=== PATIENT | male | born 1975 | race Caucasian/White ===

== ENCOUNTER 2018-07-09 21:07 | Emergency (ER) | payer OTHER, SELFPAY ==
[2018-07-09 21:17] VITALS: BP 119/72; PULSE 68; RESP 15; TEMP 36.6; O2SAT 99
--- NOTE | 2018-07-09 21:23 | DI.RAD.S_ITS ---
PROCEDURE: XR CHEST 1V INDICATIONS: back/arm pain TECHNIQUE: One view of the chest was acquired. COMPARISON: [facility], , CHEST 2 VIEW, 01/03/2017, 16:04. FINDINGS: Surgical changes and devices: None. Lungs and pleura: No pleural effusions or pneumothorax. Lungs are clear. Mediastinum: Mediastinal contours appear normal. Heart size is normal. Bones and chest wall: No suspicious bony lesions. Overlying soft tissues appear unremarkable. IMPRESSION: No acute pulmonary process. Dictated by: Steph Wyatt M.D. on 07/09/2018 at 21:52 Approved by: Steph Wyatt M.D. on 07/09/2018 at 21:52
[2018-07-09 21:30] LABS: Add Manual Diff / Slide Review NO; Basophils Percent Auto 0.7 % (0-2); Eosinophils Percent Auto 4.2 % (2-4); Hematocrit 41.5 % (41-53); Hemoglobin 14.1 g/dL (13.5-17.5); Lymphocytes Percent Auto 26.9 % (25-40); Mean Corpuscular Hemoglobin 29.3 PG (26-34); Mean Corpuscular Volume 86.1 fL (80-100); Monocytes Percent Auto 6.7 % (3-14); Neutrophils Absolute Auto 7100 /uL (3000-5900); Neutrophils Percent Auto 61.5 % (50-75); Platelet Count 232 X10^3/uL (150-400); Red Blood Cell Count 4.82 X10^6/uL (4.5-5.9); Red Cell Distribution Width 13.2 % (11.6-14.8); White Blood Cell Count 11.6 X10^3/uL (4.5-11.0)
[2018-07-09 21:39] LABS: Alanine Aminotransferase 52 IU/L (21-72); Albumin 4.4 g/dL (3.5-5.0); Albumin Globulin Ratio 1.5 (1.0-2.8); Alkaline Phosphatase 71 U/L (38-126); Aspartate Aminotransferase 39 IU/L (17-59); BUN Creatinine Ratio 15.6 (6-22); Bilirubin Total 0.7 mg/dL (0.2-1.3); Blood Urea Nitrogen 14 mg/dL (9-20); Calcium 9.1 mg/dL (8.4-10.2); Carbon Dioxide 31 mmol/L (22-32); Chloride 104 mmol/L (98-107); Creatine Kinase 103 U/L (55-170); Estimated Glomerular Filt Rate > 60.0 mL/min (>60); Glucose 65 mg/dL (70-100); HEMOLYSIS < 15 (0-50); Lipase 97 U/L (23-300); Potassium 3.7 mmol/L (3.4-5.1); Sodium 145 mmol/L (137-145); Total Protein 7.4 g/dL (6.3-8.2)
--- NOTE | 2018-07-09 21:48 | ED.CHESTPAIN ---
HPI - Chest Pain General Chief Complaint: Chest Pain Stated Complaint: PAIN UPPER BACK AND ARM ADN TOWRDS CHEST Time Seen by Provider: 07/09/18 21:25 Source: patient and family ( ) Mode of arrival: ambulatory Limitations: no limitations History of Present Illness HPI narrative: this is a 43-year-old male who comes to the emergency department with complaint of back pain that radiates to the anterior chest. Patient states that also makes his chronic right arm pain worse. Patient states it started a couple days ago. 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 It has not improved. Movement seems to make it worse. His tried massaging the area which did not really seem to improve it. He has tried Tylenol which has not been helpful for pain. Patient states that he does not feel short of breath. Symptoms are not worse with deep inspiration. He has not had any fevers. No cold cough or congestion. No nausea, no vomiting no GI or urinary issues otherwise. He has not had any swelling in his extremities. He chronically has pain in his right arm but states that it is worsened when this pain is worsened. Does have a history of asthma. States that he cannot take ibuprofen or NSAIDs secondary to reaction to them. He does smoke about 1 pack per week tobacco and vapes a lot per patient. Related Data Previous Rx's Medication Instructions Recorded naproxen [Naprosyn] 500 mg PO BIDCC #30 tab 07/17/17 albuterol sulfate [Ventolin HFA] 1 puff INH Q4HP PRN #1 ea 07/24/17 tramadol 50 mg PO Q6H PRN #10 tab 07/09/18 Allergies Allergy/AdvReac Type Severity Reaction Status Date / Time latex Allergy Mild RASH Unverified 12/30/17 12:15 Review of Systems Review of Systems All systems reviewed & are unremarkable except as noted in HPI and below Constitutional Denies fever(s) Cardiovascular Reports chest pain, Denies diaphoresis, Denies syncope, Denies rapid heart rate, Denies edema, Reports radiating jaw, neck or arm pain, Denies dyspnea and Denies dyspnea on exertion Respiratory Denies chest congestion, Denies cough, Denies hemoptysis, Denies pain on inspiration, Denies dyspnea, Denies dyspnea on exertion and Denies wheezing Gastrointestinal Gastrointestinal: Denies abdominal pain, Denies change in bowel habits, Denies diarrhea, Denies nausea and Denies vomiting Genitourinary Denies difficulty urinating Musculoskeletal Denies muscle cramps, Denies numbness, Reports radiating pain into limb (right arm, chronic) and Denies tingling Integumentary/Breasts Denies rash Neurologic Denies syncope, Denies numbness and Denies tingling Allergic/Immunologic Denies wheezing PFSH Medical History Asthma (Acute) Surgical History History of hand surgery (Acute) Family History Grandmother Age: 94 Cerebrovascular accident (CVA), unspecified mechanism Social History Smoking Status: Current every day smoker Exam Narrative Exam Narrative: GENERAL: Alert and oriented x three, Well-nourished, well-appearing Male in mild distress. HEENT: Head normocephalic, atraumatic, EOMI, pupils reactive, face symmetric, moist mucous membranes NECK: Supple, full range of motion CARDIOVASCULAR: Regular rate and rhythm without murmurs, rubs or gallops. RESPIRATORY: Breath sounds equal bilaterally, no wheezes rales or rhonchi. ABDOMEN: Soft, nontender. Normoactive bowel sounds all 4 quadrants. No guarding or rebound, rigidity, no mass : No CVA tenderness BACK: No cervical, thoracic or lumbar vertebral point tenderness. Patient has normal range of motion. Muscle strength is 5/5 in upper extremities, 2+ radial pulses bilaterally. Patient does have tenderness over the right upper thoracic region just medial to the scapula. I am unable to palpate muscular not but he is also point tender in that area. EXTREMITIES: Normal range of motion, no clubbing or edema. Neurovascularly intact NEUROLOGICAL: Cranial nerves II through XII grossly intact. Moving all extremities SKIN: Warm, dry, no petechiae, no rashes or lesions. Initial Vital Signs Initial Vital Signs: Vital Signs Temperature 97.8 F 07/09/18 21:17 Pulse Rate 68 07/09/18 21:17 Respiratory Rate 15 07/09/18 21:17 Blood Pressure 119/72 07/09/18 21:17 Pulse Oximetry 99 07/09/18 21:17 Scores PERC Score Age greater than or equal to 50 years: No Heart rate greater than or equal to 100 bpm: No Room Air O2 Sat less than 95%: No Unilateral leg swelling: No Recent trauma or surgery: No Hemoptysis: No Prior PE or DVT: No Hormone Use: No Total PERC Score: 0 Course Orders Ordered: ED Orders 07/09/18 21:20 Complete Blood Count AUTO DIFF Stat Comprehensive Metabolic Panel Stat Lipase Stat Troponin & CK Cardiac Panel Stat 07/09/18 21:23 XR chest 1V Stat EKG-12 Lead Stat Discontinued Medications Aspirin (Aspirin Chew) 324 mg PO NOW ONE Stop: 07/09/18 21:24 Last Admin: 07/09/18 21:56 Dose: 324 mg Sodium Chloride (Normal Saline 0.9%) 1,000 mls @ 150 mls/hr IV CONT JAIME Last Infusion: 07/09/18 23:15 Dose: 0 mls/hr Admin: 07/09/18 21:56 Dose: 150 mls/hr Tramadol HCl (Ultram 50mg Prepack) 1 bottle MISC SEEINSTR ONE Stop: 07/09/18 22:54 Last Admin: 07/09/18 23:09 Dose: 1 bottle Vital Signs - 8 hr 07/09/18 21:17 07/09/18 23:15 Temperature 97.8 F 98.1 F Pulse Rate 68 67 Respiratory Rate 15 15 Blood Pressure 119/72 103/68 Pulse Oximetry 99 98 MDM - Chest Pain Lab Data Attestation: I reviewed the patient's lab results. Result diagrams: 07/09/18 21:20 07/09/18 21:20 Lab Results 07/09/18 07/09/18 Range/Units 21:20 21:20 WBC 11.6 H (4.5-11.0) X10^3/uL RBC 4.82 (4.5-5.9) X10^6/uL Hgb 14.1 (13.5-17.5) g/dL Hct 41.5 (41-53) % MCV 86.1 (80-100) fL MCH 29.3 (26-34) PG MCHC 34.0 (30-36) % RDW 13.2 (11.6-14.8) % Plt Count 232 (150-400) X10^3/uL Neut % (Auto) 61.5 (50-75) % Lymph % (Auto) 26.9 (25-40) % [place] % (Auto) 6.7 (3-14) % Eos % (Auto) 4.2 H (2-4) % Baso % (Auto) 0.7 (0-2) % Neut # (Auto) 7100 H (9985-9789) /uL Sodium 145 (137-145) mmol/L Potassium 3.7 (3.4-5.1) mmol/L Chloride 104 (98-107) mmol/L Carbon Dioxide 31 (22-32) mmol/L BUN 14 (9-20) mg/dL Creatinine 0.90 (0.66-1.25) mg/dL Estimated GFR > 60.0 (>60) mL/min BUN/Creatinine Ratio 15.6 (6-22) Glucose 65 L (70-100) mg/dL Calcium 9.1 (8.4-10.2) mg/dL Total Bilirubin 0.7 (0.2-1.3) mg/dL AST 39 (17-59) IU/L ALT 52 (21-72) IU/L Alkaline Phosphatase 71 (38-126) U/L Total Creatine Kinase 103 (55-170) U/L CK-MB (CK-2) 1.00 (<2.37) ng/mL CK-MB (CK-2) Rel Index 1.0 L (1.5-5.0) % Troponin I < 0.012 (0.01-0.034) ng/mL Total Protein 7.4 (6.3-8.2) g/dL Albumin 4.4 (3.5-5.0) g/dL Globulin 3.0 (1.7-4.1) g/dL Albumin/Globulin Ratio 1.5 (1.0-2.8) Lipase 97 (23-300) U/L Imaging Data Chest x-ray: Attestation: I personally reviewed and interpreted this imaging study as follows: Radiologist's impression: [address] [address] XRay Report Signed Patient: Dwayne Chambers WMR#: [id number] : 1975Acct:[id number] Age/Sex: 43 / MDate of Service: 07/09/18 Loc: ED Accession Number: [id number] Procedure: XR chest 1V Ordering Provider: Ami Alvarez D.O. PROCEDURE: XR CHEST 1V INDICATIONS: back/arm pain TECHNIQUE: One view of the chest was acquired. COMPARISON: [facility], , CHEST 2 VIEW, 01/03/2017, 16:04. FINDINGS: Surgical changes and devices: None. Lungs and pleura: No pleural effusions or pneumothorax. Lungs are clear. Mediastinum: Mediastinal contours appear normal. Heart size is normal. Bones and chest wall: No suspicious bony lesions. Overlying soft tissues appear unremarkable. IMPRESSION: No acute pulmonary process. Dictated by: Steph Wyatt M.D. on 07/09/2018 at 21:52 Approved by: Steph Wytat M.D. on 07/09/2018 at 21:52 ECG Data Attestation: I personally reviewed and interpreted this ECG as follows: Interpretation: Sinus arrhythmia, rate is 62 in, P are 1 EA history currently QRS is 94 and QTC of 412. No ST elevation or depression. MDM Narrative Medical decision making narrative: Patient has had several days of constant back pain radiating to his anterior chest. EKG and troponin are negative. Patient's pain as well as actual physical tenderness is just medial to the right scapula which makes my suspicion for dissection low as well as pulmonary embolism. He could have nerve impingement of the thoracic back or was 222 was moves quickly causes of his pain at this time these had no recent trauma or other injuries. We did discuss signs and symptoms to watch for and reasons to return. Discharge Plan Departure Patient Disposition: Home Clinical Impression: Acute right-sided thoracic back pain Discharge Date/Time: 07/09/18 23:15 Interventions: ED Discharge Assessment Last Done: 07/09/18 23:15 Instructions: DI for Thoracic Back Pain Activity Restrictions/Additional Instructions: Take medication as prescribed, this medication can make you sleepy do not drive, perform hazards activities or make any major decisions while taking it. Follow-up with primary care in the next 2-3 days if symptoms are not improving. General Return Instructions : Return to the Emergency Department for any new or worsening symptoms. Return to the Emergency Department for fevers Greater than 100.4, new or severe thoracic, severe abdominal pain, chest pain, shortness of breath, passing out, persistent vomiting, worrisome rash, or any other new or worsening symptoms. Prescriptions: New tramadol 50 mg tablet 50 mg PO Q6H PRN (Reason: pain) Qty: 10 RF: 0 No Action naproxen [Naprosyn] 500 MG tablet 500 mg PO BIDCC Qty: 30 RF: 0 albuterol sulfate [Ventolin HFA] 90 MCG/PUFF HFA aerosol inhaler 1 puff INH Q4HP PRNQty: 1 RF: 11
--- NOTE | 2018-07-09 21:52 | ED_ITS ---
HPI - Chest Pain General Chief Complaint: Chest Pain Stated Complaint: PAIN UPPER BACK AND ARM ADN TOWRDS CHEST Time Seen by Provider: 07/09/18 21:25 Source: patient and family ( ) Mode of arrival: ambulatory Limitations: no limitations History of Present Illness HPI narrative: this is a 43-year-old male who comes to the emergency department with complaint of back pain that radiates to the anterior chest. Patient states that also makes his chronic right arm pain worse. Patient states it started a couple days ago. 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 It has not improved. Movement seems to make it worse. His tried massaging the area which did not really seem to improve it. He has tried Tylenol which has not been helpful for pain. Patient states that he does not feel short of breath. Symptoms are not worse with deep inspiration. He has not had any fevers. No cold cough or congestion. No nausea, no vomiting no GI or urinary issues otherwise. He has not had any swelling in his extremities. He chronically has pain in his right arm but states that it is worsened when this pain is worsened. Does have a history of asthma. States that he cannot take ibuprofen or NSAIDs secondary to reaction to them. He does smoke about 1 pack per week tobacco and vapes a lot per patient. Related Data Previous Rx's Medication Instructions Recorded naproxen [Naprosyn] 500 mg PO BIDCC #30 tab 07/17/17 albuterol sulfate [Ventolin HFA] 1 puff INH Q4HP PRN #1 ea 07/24/17 tramadol 50 mg PO Q6H PRN #10 tab 07/09/18 Allergies Allergy/AdvReac Type Severity Reaction Status Date / Time latex Allergy Mild RASH Unverified 12/30/17 12:15 Review of Systems Review of Systems All systems reviewed & are unremarkable except as noted in HPI and below Constitutional Denies fever(s) Cardiovascular Reports chest pain, Denies diaphoresis, Denies syncope, Denies rapid heart rate , Denies edema, Reports radiating jaw, neck or arm pain, Denies dyspnea and Denies dyspnea on exertion Respiratory Denies chest congestion, Denies cough, Denies hemoptysis, Denies pain on inspiration, Denies dyspnea, Denies dyspnea on exertion and Denies wheezing Gastrointestinal Gastrointestinal: Denies abdominal pain, Denies change in bowel habits, Denies diarrhea, Denies nausea and Denies vomiting Genitourinary Denies difficulty urinating Musculoskeletal Denies muscle cramps, Denies numbness, Reports radiating pain into limb (right arm, chronic) and Denies tingling Integumentary/Breasts Denies rash Neurologic Denies syncope, Denies numbness and Denies tingling Allergic/Immunologic Denies wheezing PFSH Medical History Asthma (Acute) Surgical History History of hand surgery (Acute) Family History Grandmother Age: 94 Cerebrovascular accident (CVA), unspecified mechanism Social History Smoking Status: Current every day smoker Exam Narrative Exam Narrative: GENERAL: Alert and oriented x three, Well-nourished, well- appearing Male in mild distress. HEENT: Head normocephalic, atraumatic, EOMI, pupils reactive, face symmetric, moist mucous membranes NECK: Supple, full range of motion CARDIOVASCULAR: Regular rate and rhythm without murmurs, rubs or gallops. RESPIRATORY: Breath sounds equal bilaterally, no wheezes rales or rhonchi. ABDOMEN: Soft, nontender. Normoactive bowel sounds all 4 quadrants. No guarding or rebound, rigidity, no mass : No CVA tenderness BACK: No cervical, thoracic or lumbar vertebral point tenderness. Patient has normal range of motion. Muscle strength is 5/5 in upper extremities, 2+ radial pulses bilaterally. Patient does have tenderness over the right upper thoracic region just medial to the scapula. I am unable to palpate muscular not but he is also point tender in that area. EXTREMITIES: Normal range of motion, no clubbing or edema. Neurovascularly intact NEUROLOGICAL: Cranial nerves II through XII grossly intact. Moving all extremities SKIN: Warm, dry, no petechiae, no rashes or lesions. Initial Vital Signs Initial Vital Signs: Vital Signs Temperature 97.8 F 07/09/18 21:17 Pulse Rate 68 07/09/18 21:17 Respiratory Rate 15 07/09/18 21:17 Blood Pressure 119/72 07/09/18 21:17 Pulse Oximetry 99 07/09/18 21:17 Scores PERC Score Age greater than or equal to 50 years: No Heart rate greater than or equal to 100 bpm: No Room Air O2 Sat less than 95%: No Unilateral leg swelling: No Recent trauma or surgery: No Hemoptysis: No Prior PE or DVT: No Hormone Use: No Total PERC Score: 0 Course Orders Ordered: ED Orders 07/09/18 21:20 Complete Blood Count AUTO DIFF Stat Comprehensive Metabolic Panel Stat Lipase Stat Troponin & CK Cardiac Panel Stat 07/09/18 21:23 XR chest 1V Stat EKG-12 Lead Stat Discontinued Medications Aspirin (Aspirin Chew) 324 mg PO NOW ONE Stop: 07/09/18 21:24 Last Admin: 07/09/18 21:56 Dose: 324 mg Sodium Chloride (Normal Saline 0.9%) 1,000 mls @ 150 mls/hr IV CONT JAIME Last Infusion: 07/09/18 23:15 Dose: 0 mls/hr Admin: 07/09/18 21:56 Dose: 150 mls/hr Tramadol HCl (Ultram 50mg Prepack) 1 bottle MISC SEEINSTR ONE Stop: 07/09/18 22:54 Last Admin: 07/09/18 23:09 Dose: 1 bottle Vital Signs - 8 hr 07/09/18 21:17 07/09/18 23:15 Temperature 97.8 F 98.1 F Pulse Rate 68 67 Respiratory Rate 15 15 Blood Pressure 119/72 103/68 Pulse Oximetry 99 98 MDM - Chest Pain Lab Data Attestation: I reviewed the patient's lab results. Result diagrams: 07/09/18 21:20 07/09/18 21:20 Lab Results 07/09/18 07/09/18 Range/Units 21:20 21:20 WBC 11.6 H (4.5-11.0) X10^3/uL RBC 4.82 (4.5-5.9) X10^6/uL Hgb 14.1 (13.5-17.5) g/dL Hct 41.5 (41-53) % MCV 86.1 (80-100) fL MCH 29.3 (26-34) PG MCHC 34.0 (30-36) % RDW 13.2 (11.6-14.8) % Plt Count 232 (150-400) X10^3/uL Neut % (Auto) 61.5 (50-75) % Lymph % (Auto) 26.9 (25-40) % [place] % (Auto) 6.7 (3-14) % Eos % (Auto) 4.2 H (2-4) % Baso % (Auto) 0.7 (0-2) % Neut # (Auto) 7100 H (2029-7586) /uL Sodium 145 (137-145) mmol/L Potassium 3.7 (3.4-5.1) mmol/L Chloride 104 (98-107) mmol/L Carbon Dioxide 31 (22-32) mmol/L BUN 14 (9-20) mg/dL Creatinine 0.90 (0.66-1.25) mg/dL Estimated GFR > 60.0 (>60) mL/min BUN/Creatinine Ratio 15.6 (6-22) Glucose 65 L (70-100) mg/dL Calcium 9.1 (8.4-10.2) mg/dL Total Bilirubin 0.7 (0.2-1.3) mg/dL AST 39 (17-59) IU/L ALT 52 (21-72) IU/L Alkaline Phosphatase 71 (38-126) U/L Total Creatine Kinase 103 (55-170) U/L CK-MB (CK-2) 1.00 (<2.37) ng/mL CK-MB (CK-2) Rel Index 1.0 L (1.5-5.0) % Troponin I < 0.012 (0.01-0.034) ng/mL Total Protein 7.4 (6.3-8.2) g/dL Albumin 4.4 (3.5-5.0) g/dL Globulin 3.0 (1.7-4.1) g/dL Albumin/Globulin Ratio 1.5 (1.0-2.8) Lipase 97 (23-300) U/L Imaging Data Chest x-ray: Attestation: I personally reviewed and interpreted this imaging study as follows: Radiologist's impression: [address] [address] XRay Report Signed Patient: Dwayne Chambers WMR#: [id number] : 1975Acct:[id number] Age/Sex: 43 / MDate of Service: 07/09/18 Loc: ED Accession Number: [id number] Procedure: XR chest 1V Ordering Provider: Ami Alvarez D.O. PROCEDURE: XR CHEST 1V INDICATIONS: back/arm pain TECHNIQUE: One view of the chest was acquired. COMPARISON: [facility], , CHEST 2 VIEW, 01/03/2017, 16:04. FINDINGS: Surgical changes and devices: None. Lungs and pleura: No pleural effusions or pneumothorax. Lungs are clear. Mediastinum: Mediastinal contours appear normal. Heart size is normal. Bones and chest wall: No suspicious bony lesions. Overlying soft tissues appear unremarkable. IMPRESSION: No acute pulmonary process. Dictated by: Steph Wyatt M.D. on 07/09/2018 at 21:52 Approved by: Steph Wyatt M.D. on 07/09/2018 at 21:52 ECG Data Attestation: I personally reviewed and interpreted this ECG as follows: Interpretation: Sinus arrhythmia, rate is 62 in, P are 1 EA history currently QRS is 94 and QTC of 412. No ST elevation or depression. MDM Narrative Medical decision making narrative: Patient has had several days of constant back pain radiating to his anterior chest. EKG and troponin are negative. Patient's pain as well as actual physical tenderness is just medial to the right scapula which makes my suspicion for dissection low as well as pulmonary embolism. He could have nerve impingement of the thoracic back or was 222 was moves quickly causes of his pain at this time these had no recent trauma or other injuries. We did discuss signs and symptoms to watch for and reasons to return. Discharge Plan Departure Patient Disposition: Home Clinical Impression: Acute right-sided thoracic back pain Discharge Date/Time: 07/09/18 23:15 Interventions: ED Discharge Assessment Last Done: 07/09/18 23:15 Instructions: DI for Thoracic Back Pain Activity Restrictions/Additional Instructions: Take medication as prescribed, this medication can make you sleepy do not drive , perform hazards activities or make any major decisions while taking it. Follow-up with primary care in the next 2-3 days if symptoms are not improving. General Return Instructions : Return to the Emergency Department for any new or worsening symptoms. Return to the Emergency Department for fevers Greater than 100.4, new or severe thoracic, severe abdominal pain, chest pain, shortness of breath, passing out, persistent vomiting, worrisome rash, or any other new or worsening symptoms. Prescriptions: New tramadol 50 mg tablet 50 mg PO Q6H PRN (Reason: pain) Qty: 10 RF: 0 No Action naproxen [Naprosyn] 500 MG tablet 500 mg PO BIDCC Qty: 30 RF: 0 albuterol sulfate [Ventolin HFA] 90 MCG/PUFF HFA aerosol inhaler 1 puff INH Q4HP PRNQty: 1 RF: 11
[2018-07-09] MEDS: SODIUM CHLORIDE 0.9% 1,000 ML 150 ML IV (21:56)
[2018-07-09] MEDS: ASPIRIN 81 MG TAB 324 MG PO (21:56)
[2018-07-09 21:58] LABS: Troponin I < 0.012 ng/mL (0.01-0.034)
[2018-07-09] MEDS: TRAMADOL 50 MG PREPACK 1 BOTTLE MISC (23:09)
[2018-07-09 23:15] VITALS: BP 103/68; PULSE 67; RESP 15; TEMP 36.7; O2SAT 98
== END 2018-07-09 23:15 | disposition home or self-care (01) ==
PROVIDERS: Emergency Provider Emergency Medicine; Family Provider Family Medicine; PCP Family Medicine
DX: M54.6 Pain in thoracic spine (principal)
CPT/HCPCS: 36415; 36591; 71045; 80053; 82550; 82553; 83690; 84484; 85025; 93005; 93010; 93041; 96360; 99283; 99285

== ENCOUNTER 2018-09-26 16:07 | Emergency (ER) | payer OTHER, SELFPAY ==
[2018-09-26 16:12] VITALS: BP 110/76; PULSE 68; RESP 20; TEMP 36.4; O2SAT 97; BMI 32.1
--- NOTE | 2018-09-26 16:17 | DI.RAD.S_ITS ---
PROCEDURE: XR ELBOW RT MIN 3V INDICATIONS: pain TECHNIQUE: 3 views of the elbow were acquired. COMPARISON: None. FINDINGS: Bones: No fractures or dislocations. No suspicious bony lesions. Soft tissues: No elbow joint effusion. No suspicious soft tissue calcifications. IMPRESSION: 1. No fracture or subluxation. Dictated by: Frederick Phipps M.D. on 09/26/2018 at 17:36 Approved by: Frederick Phipps M.D. on 09/26/2018 at 17:38
--- NOTE | 2018-09-26 18:39 | ED_ITS ---
HPI - Extremity Injury (Upper) General Chief Complaint: Extremity Injury, Upper Stated Complaint: right arm pain Time Seen by Provider: 09/26/18 18:06 Source: patient Mode of arrival: ambulatory Limitations: no limitations History of Present Illness HPI narrative: 43-year-old male here for evaluation of right elbow pain. Patient states that it started this afternoon when he was working on a lawnmower. Unsure as the exact mechanism however he states that he did not hit it. Has never injured in the past. Has not tried anything for prior to arrival. Related Data Previous Rx's Medication Instructions Recorded naproxen [Naprosyn] 500 mg PO BIDCC #30 tab 07/17/17 tramadol 50 mg PO Q6H PRN #10 tab 07/09/18 albuterol sulfate HFA 90 1 puff INHALATION Q4HP PRN #1 ea 08/13/18 mcg/actuation aerosol inhaler Allergies Allergy/AdvReac Type Severity Reaction Status Date / Time latex Allergy Mild RASH Unverified 12/30/17 12:15 Review of Systems Constitutional Denies fever(s) Cardiovascular Denies chest pain and Denies dyspnea Respiratory Denies dyspnea Gastrointestinal Gastrointestinal: Denies abdominal pain Musculoskeletal Denies myalgias and Reports arthralgias (Right elbow pain) Integumentary/Breasts Denies skin pain Neurologic Comments: Some tingling to the right hand PFSH Medical History Asthma (Acute) Surgical History History of hand surgery (Acute) Family History Grandmother Age: 95 Cerebrovascular accident (CVA), unspecified mechanism Social History Smoking Status: Current every day smoker Exam Initial Vital Signs Initial Vital Signs: Vital Signs Temperature 97.6 F 09/26/18 16:12 Pulse Rate 68 09/26/18 16:12 Respiratory Rate 20 09/26/18 16:12 Blood Pressure 110/76 09/26/18 16:12 Pulse Oximetry 97 09/26/18 16:12 Const General: cooperative, healthy appearing, comfortable, well developed, well groomed and No acute distress Orientation: alert, awake and oriented x3 HENMT Head: normal to inspection and normocephalic Cardio Rate: regular rate Skin Rashes: no rashes Neuro Motor: muscle tone normal throughout Sensory Exam: no sensory deficits noted Extrem Other: Right shoulder unremarkable. Right upper arm unremarkable. Patient tender to palpation over the radial head on the right elbow. Right wrist unremarkable. Patient able to pronate and supinate without any problems. Right hand unremarkable. Course Orders Ordered: ED Orders 09/26/18 16:17 XR elbow RT min 3V Stat Vital Signs - 8 hr 09/26/18 16:12 Temperature 97.6 F Pulse Rate 68 Respiratory Rate 20 Blood Pressure 110/76 Pulse Oximetry 97 MDM - Extremity Injury (Upper) Imaging Data X-ray right elbow: Radiologist's impression: PROCEDURE: XR ELBOW RT MIN 3V INDICATIONS: pain TECHNIQUE: 3 views of the elbow were acquired. COMPARISON: None. FINDINGS: Bones: No fractures or dislocations. No suspicious bony lesions. Soft tissues: No elbow joint effusion. No suspicious soft tissue calcifications. IMPRESSION: 1. No fracture or subluxation. Dictated by: Frederick Phipps M.D. on 09/26/2018 at 17:36 Approved by: Frederick Phipps M.D. on 09/26/2018 at 17:38 [facility] Narrative Medical decision making narrative: Patient neurovascularly intact. Is tender palpation over the radial head. No fractures noted on the x-ray. Suspect an overuse injury such as tendinitis or bursitis. Discussed this with the patient. We discussed symptomatic treatment. He was given return precautions. He expressed understanding and agreement plan. Discharge Plan Departure Patient Disposition: Home Clinical Impression: Elbow pain, right, Tendonitis, Pain of left forearm Discharge Date/Time: 09/26/18 18:57 Interventions: ED Discharge Assessment Last Done: 09/26/18 18:56 Instructions: Tendonitis (Alternative Therapy), How To Perform RICE (Rest, Ice , Compress, Elevate) Activity Restrictions/Additional Instructions: The rice instructions does focus on the ankle but you can incorporate this information to your elbow. There were no fractures on the x-ray. I do recommend that you avoid activities that make it worse. Your only restriction is to avoid these activities. I would also recommend you take an anti- inflammatory such as Motrin or Naprosyn. Follow-up with your primary care doctor. Prescriptions: No Action naproxen [Naprosyn] 500 MG tablet 500 mg PO BIDCC Qty: 30 RF: 0 albuterol sulfate [Ventolin HFA] 90 mcg/actuation HFA aerosol inhaler 1 puff INHALATION Q4HP PRN (Reason: shortness of breath) Qty: 1 RF: 2 tramadol 50 mg tablet 50 mg PO Q6H PRN (Reason: pain) Qty: 10 RF: 0
== END 2018-09-26 18:57 | disposition home or self-care (01) ==
PROVIDERS: Emergency Provider Emergency Medicine; Family Provider Family Medicine; PCP Family Medicine
DX: M25.521 Pain in right elbow (principal); M77.8 Other enthesopathies, not elsewhere classified
CPT/HCPCS: 73080; 99282; 99283

== ENCOUNTER → 2019-07-19 19:08 | Outpatient (CLI) | payer OTHER, SELFPAY ==
--- NOTE | 2019-07-19 19:12 | DI.MRI.S_ITS ---
PROCEDURE: MR HEAD/BRAIN WO CON INDICATIONS: History of transient ischemic attack. TECHNIQUE: Noncontrast axial T1 spin echo, axial T2 fast spin echo, sagittal and axial FLAIR, coronal T2 fast spin echo, axial gradient echo, axial diffusion and ADC through the brain. COMPARISON: None. FINDINGS: Image quality: Excellent. CSF Spaces: Basal cisterns are patent. No extra-axial fluid collections. Ventricles are normal in size and shape. Brain: No intracranial masses or hemorrhage. Love/white matter interface is normal. Brainstem appears normal. Diffusion-weighted images demonstrate no acute ischemic insult. No chronic ischemic insults. Normal intravascular flow voids are present. Skull and face: Calvarium has normal marrow signal. Orbits appear normal. Sinuses: Mild mucosal thickening is seen within the maxillary sinuses. There is a mucous retention cyst seen within the anterior left maxillary sinus. The paranasal sinuses otherwise appear clear. No abnormal fluid is seen within the mastoid air cells. Mild leftward nasal septal deviation is incidentally noted. IMPRESSION: Unremarkable intracranial examination. No findings of acute or subacute infarction can be seen. Dictated by: Michele Delarosa M.D. on 07/20/2019 at 9:11 Approved by: Michele Delarosa M.D. on 07/20/2019 at 9:13
== END ==
PROVIDERS: PCP Hospitalist; Visit Provider Hospitalist
DX: G45.9 Transient cerebral ischemic attack, unspecified (principal)
CPT/HCPCS: 70551

== ENCOUNTER 2019-10-22 12:44 | Emergency (ER) | payer OTHER, SELFPAY ==
[2019-10-22 12:48] VITALS: BP 138/77; PULSE 83; RESP 18; TEMP 36.9; O2SAT 96; BMI 35.2
--- NOTE | 2019-10-22 12:59 | ED.GENADULT ---
HPI - General Adult General Chief complaint: Dental/Oral Stated complaint: states tooth infection, headaches Time Seen by Provider: 10/22/19 12:53 Source: patient Mode of arrival: Ambulatory Limitations: no limitations History of Present Illness HPI narrative: 44-year-old male here for evaluation of right front upper tooth pain. He also states he has tenderness under his eye on the right. Has been worsening over the past couple days. He has known very poor dentition. Is scheduled to see a dentist on Thursday. Has been taking anti-inflammatories. No problems breathing. Related Data Previous Rx's Medication Instructions Recorded naproxen [Naprosyn] 500 mg PO BIDCC #30 tab 07/17/17 tramadol 50 mg PO Q6H PRN #10 tab 07/09/18 beclomethasone dipropionate 80 1 inhalation INHALATION BID #10.6 07/08/19 mcg/actuation HFA breath activated gram aerosol esomeprazole magnesium 20 mg 20 mg PO DAILY #30 each 07/08/19 granules delayed release for susp esomeprazole magnesium 40 mg 40 mg PO DAILY #30 cap 07/14/19 capsule,delayed release albuterol sulfate 90 mcg/actuation 2 puff INHALATION Q4-6H PRN #8 gram 07/15/19 aerosol inhaler penicillin V potassium 500 mg PO QID 7 Days #28 tab 10/22/19 Allergies Allergy/AdvReac Type Severity Reaction Status Date / Time latex Allergy Mild RASH Verified 07/08/19 15:47 Review of Systems ENT Comments: Right upper front tooth pain Cardiovascular Cardiovascular: Denies dyspnea Respiratory Respiratory: Denies cough and Denies dyspnea Musculoskeletal Musculoskeletal: Denies myalgias and Denies arthralgias Integumentary/Breasts Skin/Breast: Denies lesions and Denies rash Hematologic/Lymphatic Hematologic/Lymphatic: Denies easy bleeding and Denies easy bruising Patient History Medical History Asthma (Acute) Surgical History (Updated 07/09/18 @ 21:51 by Ami Alvarez DO) History of hand surgery (Acute) Family History (Updated 07/08/19 @ 16:19 by Paulina Hodges MD) Grandmother Age: 96 Cerebrovascular accident (CVA), unspecified mechanism Mother Cancer Father Diabetes mellitus Menieres disease Social History (Reviewed 10/22/19 @ 13:00 by ANNMARIE Trevizo Smoking Status: Current every day smoker Smoking Status: Current every day smoker alcohol intake frequency: 0-2 drinks per day Substance Use Type: does not use Exam Initial Vital Signs Initial Vital Signs: Vital Signs Temperature 98.4 F 10/22/19 12:48 Pulse Rate 83 10/22/19 12:48 Respiratory Rate 18 10/22/19 12:48 Blood Pressure 138/77 10/22/19 12:48 Pulse Oximetry 96 10/22/19 12:48 Const General: cooperative, comfortable and well developed HENMT Teeth and gingiva: caries and poor dentition Resp Effort & Inspection: normal respiratory effort Cardio Rate: regular rate Skin Lesions: no lesions Rashes: no rashes Extrem General: capillary refill normal Course Vital Signs Vital signs: Vital Signs - 8 hr 10/22/19 12:48 Temperature 98.4 F Pulse Rate 83 Respiratory Rate 18 Blood Pressure 138/77 Pulse Oximetry 96 Medical Decision Making MDM Narrative Medical decision making narrative: Poor dentition, right upper front tooth along with others have caries. No defined abscess seen here in the ER that is amenable to drainage. Will send home on antibiotics. He will keep his dentist appointment on Thursday. He was given return precautions and follow-up instructions. He expressed understanding and agreement plan Discharge Plan Departure Patient Disposition: Home Clinical Impression: Dental infection Instructions: Tooth Decay Activity Restrictions/Additional Instructions: The antibiotics as directed. Keep your scheduled appointment on next week with a dentist. Return to the emergency department for any new or worsening symptoms Prescriptions: New penicillin V potassium 500 mg tablet 500 mg PO QID 7 Days Qty: 28 RF: 0 No Action naproxen [Naprosyn] 500 MG tablet 500 mg PO BIDCC Qty: 30 RF: 0 esomeprazole magnesium [Nexium] 40 mg capsule,delayed release(DR/EC) 40 mg PO DAILY Qty: 30 RF: 1 albuterol sulfate 90 mcg/actuation HFA aerosol inhaler 2 puff INHALATION Q4-6H PRN (Reason: shortness of breath) Qty: 8 RF: 5 Qvar RediHaler 80 mcg/actuation HFA aerosol breath activated 1 inhalation INHALATION BID Qty: 10.6 RF: 0 Nexium Packet [address] for susp in packet 20 mg PO DAILY Qty: 30 RF: 2 tramadol 50 mg tablet 50 mg PO Q6H PRN (Reason: pain) Qty: 10 RF: 0
[2019-10-22 13:10] VITALS: BP 138/77; PULSE 83; RESP 18; TEMP 36.9; O2SAT 96
== END 2019-10-22 13:10 | disposition home or self-care (01) ==
PROVIDERS: Emergency Provider Emergency Medicine
DX: K04.7 Periapical abscess without sinus (principal)
CPT/HCPCS: 99281; 99283

== ENCOUNTER → 2020-04-13 15:34 | Outpatient (CLI) | payer OTHER, SELFPAY ==
[2020-04-13 16:48] LABS: Add Manual Diff / Slide Review NO; Basophils Absolute Auto 100 /uL (0-100); Basophils Percent Auto 0.6 % (0-2); Eosinophils Absolute Auto 200 /uL (0-450); Eosinophils Percent Auto 2.2 % (2-4); Hematocrit 41.4 % (41-53); Hemoglobin 14.1 g/dL (13.5-17.5); Lymphocytes Absolute Auto 2600 /uL (1100-4500); Lymphocytes Percent Auto 25.1 % (25-40); Mean Corpuscular HGB Conc 34.1 % (30-36); Mean Corpuscular Hemoglobin 29.2 PG (26-34); Mean Corpuscular Volume 85.6 fL (80-100); Monocytes Absolute Auto 800 /uL (0-900); Monocytes Percent Auto 7.6 % (3-14); Neutrophils Absolute Auto 6600 /uL (1500-7000); Neutrophils Percent Auto 64.5 % (50-75); Platelet Count 231 X10^3/uL (150-400); Red Blood Cell Count 4.84 X10^6/uL (4.5-5.9); Red Cell Distribution Width 13.5 % (11.6-14.8); White Blood Cell Count 10.2 X10^3/uL (4.5-11.0)
[2020-04-13 16:54] LABS: Hemoglobin A1C% w Est Avg Glu 5.5 % (4.0-6.0)
[2020-04-13 17:16] LABS: BUN Creatinine Ratio 14.9 (6-22); Blood Urea Nitrogen 14 mg/dL (9-20); Calcium 9.7 mg/dL (8.4-10.2); Carbon Dioxide 27 mmol/L (22-32); Chloride 105 mmol/L (98-107); Cholesterol 198 mg/dL (140-199); Estimated Glomerular Filt Rate > 60.0 mL/min (>60); Glucose 86 mg/dL (70-100); HDL Cholesterol 43 mg/dL (40-60); HEMOLYSIS < 15 (0-50); LDL Cholesterol Calculated 133 mg/dL (<100); Potassium 4.6 mmol/L (3.4-5.1); Sodium 138 mmol/L (137-145); Triglycerides 112 mg/dL (35-150)
[2020-04-13 17:32] LABS: Vitamin D 25 Hydroxy (D3) 34.6 ng/mL (30.0-100.0)
[2020-04-13 17:46] LABS: TSH w/ Reflex to FT4 1.68 uIU/mL (0.47-4.68)
[2020-04-13 17:48] LABS: Testosterone 203 ng/dL (132-813)
[2020-04-13 18:04] LABS: Vitamin B12 857 pg/mL (239-931)
== END ==
PROVIDERS: PCP Student in an Organized Health Care Education/Training Program; Referring Provider Student in an Organized Health Care Education/Training Program; Visit Provider Student in an Organized Health Care Education/Training Program
DX: Z13.220 Encounter for screening for lipoid disorders (principal); E66.9 Obesity, unspecified; N52.9 Male erectile dysfunction, unspecified; R06.83 Snoring; E55.9 Vitamin D deficiency, unspecified; R40.0 Somnolence
CPT/HCPCS: 36415; 80048; 80061; 82306; 82607; 83036; 84403; 84443; 85025

== ENCOUNTER 2020-10-23 10:38 | Observation (INO) | payer OTHER, SELFPAY ==
[2020-10-23] VITALS (36 sets, daily range): BP systolic 115–158; BP diastolic 66–97; PULSE 63–86; RESP 13–30; TEMP 36.7–36.8; O2SAT 92–98; BMI 35.4; BMI 34.4
--- NOTE | 2020-10-23 10:44 | DI.RAD.S_ITS ---
PROCEDURE: XR CHEST 1V INDICATIONS: Chest pain TECHNIQUE: One view of the chest was acquired. COMPARISON: [facility], CR, XR CHEST 1V, 07/09/2018, 21:30. FINDINGS: Surgical changes and devices: None. Lungs and pleura: Lungs are clear. No pleural effusions or pneumothorax. Mediastinum: Mediastinal contours appear normal. Heart size is normal. Bones and chest wall: No suspicious bony lesions. Overlying soft tissues appear unremarkable. IMPRESSION: No acute cardiopulmonary pathology. Dictated by: Herson Gonzalez M.D. on 10/23/2020 at 10:16 Approved by: Herson Gonzalez M.D. on 10/23/2020 at 10:21
[2020-10-23 11:05] LABS: Add Manual Diff / Slide Review NO; Basophils Absolute Auto 100 /uL (0-100); Basophils Percent Auto 0.9 % (0-2); Eosinophils Absolute Auto 600 /uL (0-450); Eosinophils Percent Auto 7.2 % (2-4); Hematocrit 41.8 % (41-53); Hemoglobin 14.3 g/dL (13.5-17.5); Lymphocytes Absolute Auto 2100 /uL (1100-4500); Lymphocytes Percent Auto 25.2 % (25-40); Mean Corpuscular HGB Conc 34.1 % (30-36); Mean Corpuscular Hemoglobin 29.4 PG (26-34); Monocytes Absolute Auto 600 /uL (0-900); Monocytes Percent Auto 7.6 % (3-14); Neutrophils Absolute Auto 4900 /uL (1500-7000); Neutrophils Percent Auto 59.1 % (50-75); Platelet Count 237 X10^3/uL (150-400); Red Blood Cell Count 4.86 X10^6/uL (4.5-5.9); White Blood Cell Count 8.3 X10^3/uL (4.5-11.0)
[2020-10-23] MEDS: ASPIRIN 81 MG CHEW TAB 324 MG PO (11:06)
[2020-10-23] MEDS: NITROGLYCERIN 0.4 MG SL TAB SL ×3 (11:07→11:18)
[2020-10-23 11:12] LABS: Prothrombin Time 12.1 SECONDS (10.1-12.7)
[2020-10-23 11:15] LABS: PTT Partial Thromboplastin Tim 34 SECONDS (26.4-36.2)
[2020-10-23 11:16] LABS: Alanine Aminotransferase 37 IU/L (<50); Albumin 4.4 g/dL (3.5-5.0); Albumin Globulin Ratio 1.3 (1.0-2.8); Alkaline Phosphatase 74 U/L (38-126); Aspartate Aminotransferase 35 IU/L (17-59); Bilirubin Total 0.5 mg/dL (0.2-1.3); Blood Urea Nitrogen 15 mg/dL (9-20); Calcium 9.2 mg/dL (8.4-10.2); Carbon Dioxide 27 mmol/L (22-32); Chloride 105 mmol/L (98-107); Creatine Kinase 110 U/L (55-170); Estimated Glomerular Filt Rate > 60.0 mL/min (>60); Globulin 3.3 g/dL (1.7-4.1); Glucose 84 mg/dL (70-100); Lipase 33 U/L (23-300); Potassium 4.2 mmol/L (3.4-5.1); Sodium 138 mmol/L (137-145); Total Protein 7.7 g/dL (6.3-8.2)
[2020-10-23 11:17] LABS: HEMOLYSIS 55 (0-50)
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
[2020-10-23 11:27] LABS: Troponin I 0.015 ng/mL (0.01-0.034)
[2020-10-23 11:31] LABS: CKMB % Relative Index 0.8 % (1.5-5.0); Creatine Kinase MB 0.88 ng/mL (<2.37)
[2020-10-23 11:46] LABS: NT-proBNP (BNP-Adult 18+) 86 pg/mL (<125)
[2020-10-23] MEDS: ACETAMINOPHEN 325 MG TABLET 650 MG PO (11:55)
[2020-10-23 12:44] LABS: COVID19 -Nasal RAPID Negative (Negative)
--- NOTE | 2020-10-23 13:34 | PC.ADMIT ---
[email or web address] Admission Note: The patient,Dwayne Chmabers,45 y/o, was given written information regarding hospital policies, unit procedures and contact persons. Patient's smoking status: Current every day smoker. Vital Signs - 8 hr 10/23/20 10:46 10/23/20 11:00 10/23/20 11:05 Pulse Rate 71 76 73 Respiratory Rate 16 25 H 17 Blood Pressure 158/97 H 146/87 H Pulse Oximetry 97 95 94 10/23/20 11:07 10/23/20 11:10 10/23/20 11:12 Pulse Rate 75 80 84 Respiratory Rate 19 18 Blood Pressure 133/84 136/85 136/85 Pulse Oximetry 94 94 10/23/20 11:15 10/23/20 11:18 10/23/20 11:20 Pulse Rate 85 83 86 Respiratory Rate 18 23 Blood Pressure 138/83 138/83 149/84 H Pulse Oximetry 93 92 10/23/20 11:25 10/23/20 11:26 10/23/20 11:30 Pulse Rate 80 83 75 Respiratory Rate 18 17 21 Blood Pressure 123/72 126/72 Pulse Oximetry 93 93 93 10/23/20 11:35 10/23/20 11:40 10/23/20 11:45 Pulse Rate 76 74 74 Respiratory Rate 18 17 17 Blood Pressure 127/75 123/77 134/81 Pulse Oximetry 94 94 96 10/23/20 11:50 10/23/20 11:55 10/23/20 12:00 Pulse Rate 70 70 74 Respiratory Rate 14 13 27 H Blood Pressure 127/76 118/76 124/75 Pulse Oximetry 96 98 95 10/23/20 12:05 10/23/20 12:10 10/23/20 12:15 Pulse Rate 71 72 73 Respiratory Rate 20 19 17 Blood Pressure 121/81 127/83 123/81 Pulse Oximetry 96 94 95 10/23/20 12:20 10/23/20 12:25 10/23/20 12:30 Pulse Rate 70 73 70 Respiratory Rate 17 30 H 24 Blood Pressure 123/80 121/77 126/83 Pulse Oximetry 95 96 94 10/23/20 12:35 10/23/20 12:40 10/23/20 12:41 Pulse Rate 70 70 71 Respiratory Rate 17 17 23 Blood Pressure 115/66 134/82 Pulse Oximetry 96 96 96 10/23/20 12:45 10/23/20 12:50 10/23/20 12:55 Pulse Rate 63 66 66 Respiratory Rate 18 16 17 Blood Pressure 116/76 121/81 124/79 Pulse Oximetry 95 95 95 10/23/20 13:00 Pulse Rate 63 Respiratory Rate 15 Blood Pressure 125/81 Pulse Oximetry 96 Rec'd pt to rm 228 from ED via w/c. Pt is AO x4 and making his needs known. Spouse to bedside. Sending all belongings home with , including wallet. VSS. RA. Placed tele: SR 60s. Educated pt to room, routine, fall risk, use of call light. Pt and verbalize understanding.
--- NOTE | 2020-10-23 14:37 | PC.NURSE ---
Addendum entered by Alecia Skinner R.N. 10/23/20 14:39: Pt declined to send home wallet with Regan Michael as indicated in previous note. Wallet at bedside and pt declines to lock up. Original Note: Day Shift Spoke with nuclear med and pt to be NPO starting now for resting part of stress test this afternoon. Pt did have small meal at 1400 but no caffeine - this was relayed to nuclear med. Pt updated and acknowledges understanding. Second part of stress test to be done approx. 1100 tomorrow (10/24) and pt to be NPO at 0800 that morning.
--- NOTE | 2020-10-23 14:40 | PM.HP.1 ---
History of Present Illness History of Present Illness Date Patient Seen: 10/23/20 Time Patient Seen: 14:15 Chief complaint: chest pain/sore left arm/numb fingertips Narrative: Patient is a 45-year-old male with history of asthma came into the emergency department for evaluation of chest pain. About 1 week ago he started to develop chest pain, shortness of breath and heart racing after an intensely stressful argument with his son. The discomfort has been there to some degree most of the time. Yesterday he noticed some pain in his left arm with numbness and tingling of the fingers. But this was not associated with chest pain. He was concerned enough that he decided to come to the ER this morning and on the way there developed recurrent chest discomfort. The discomfort is fairly localized in the mid to lower sternum to the left and does not radiate. Denies nausea, vomiting but did have diaphoresis. He has no history of hypertension. His cholesterol check last year showed LDL 133. He has no significant family history of heart disease other than a grandparents. He quit cigarettes in August 2020 but has been vaping since then. His chest discomfort did improve from 5 down to 2/10 after nitroglycerin in the ED. His EKG and troponin were normal. Patient History Medical History Asthma Dental infection Surgical History (Updated 07/09/18 @ 21:51 by Ami Alvarez DO) History of hand surgery Family & Social History Family History (Updated 07/08/19 @ 16:19 by Paulina Hodges MD) Grandmother Age: 97 Cerebrovascular accident (CVA), unspecified mechanism Mother Cancer Father Diabetes mellitus Menieres disease Social History: household members children Prior Living Arrangements House Safety & Behavioral: Feels Safe in Current Yes Environment Been Physically Hurt or No Threatened By a Person Suicidal Ideation Description None Tobacco & Substance use: Smoking Status Current every day smoker alcohol intake frequency a few times a week Substance Use Type does not use Meds Home Medications and Allergies Home Medications Medication Instructions Recorded Confirmed Type albuterol sulfate 90 mcg/actuation 2 puff INHALATION Q4-6H PRN #8 gram 09/19/20 10/23/20 Rx aerosol inhaler Allergies Allergy/AdvReac Type Severity Reaction Status Date / Time latex Allergy Mild RASH Verified 10/23/20 11:06 Review of Systems Review of Systems ROS: Yes All systems reviewed with the patient and are negative except as otherwise documented Exam Vital Signs (past 8 hours): - 10/23/20 10:46 10/23/20 11:00 10/23/20 11:05 Pulse Rate 71 76 73 Respiratory Rate 16 25 H 17 Blood Pressure 158/97 H 146/87 H Pulse Oximetry 97 95 94 10/23/20 11:07 10/23/20 11:10 10/23/20 11:12 Pulse Rate 75 80 84 Respiratory Rate 19 18 Blood Pressure 133/84 136/85 136/85 Pulse Oximetry 94 94 10/23/20 11:15 10/23/20 11:18 10/23/20 11:20 Pulse Rate 85 83 86 Respiratory Rate 18 23 Blood Pressure 138/83 138/83 149/84 H Pulse Oximetry 93 92 10/23/20 11:25 10/23/20 11:26 10/23/20 11:30 Pulse Rate 80 83 75 Respiratory Rate 18 17 21 Blood Pressure 123/72 126/72 Pulse Oximetry 93 93 93 10/23/20 11:35 10/23/20 11:40 10/23/20 11:45 Pulse Rate 76 74 74 Respiratory Rate 18 17 17 Blood Pressure 127/75 123/77 134/81 Pulse Oximetry 94 94 96 10/23/20 11:50 10/23/20 11:55 10/23/20 12:00 Pulse Rate 70 70 74 Respiratory Rate 14 13 27 H Blood Pressure 127/76 118/76 124/75 Pulse Oximetry 96 98 95 10/23/20 12:05 10/23/20 12:10 10/23/20 12:15 Pulse Rate 71 72 73 Respiratory Rate 20 19 17 Blood Pressure 121/81 127/83 123/81 Pulse Oximetry 96 94 95 10/23/20 12:20 10/23/20 12:25 10/23/20 12:30 Pulse Rate 70 73 70 Respiratory Rate 17 30 H 24 Blood Pressure 123/80 121/77 126/83 Pulse Oximetry 95 96 94 10/23/20 12:35 10/23/20 12:40 10/23/20 12:41 Pulse Rate 70 70 71 Respiratory Rate 17 17 23 Blood Pressure 115/66 134/82 Pulse Oximetry 96 96 96 10/23/20 12:45 10/23/20 12:50 10/23/20 12:55 Pulse Rate 63 66 66 Respiratory Rate 18 16 17 Blood Pressure 116/76 121/81 124/79 Pulse Oximetry 95 95 95 10/23/20 13:00 10/23/20 13:15 Pulse Rate 63 66 Respiratory Rate 15 19 Blood Pressure 125/81 123/78 Pulse Oximetry 96 98 Oxygen Delivery Method Room Air Oxygen Flow Rate 0 Narrative Exam Narrative: General: Alert and cooperative overweight male in no acute distress HEENT: Pupils equal, anicteric Neck: Supple without lymphadenopathy Lungs: Clear to auscultation Heart: Normal S1 and S2, regular rate and rhythm, no murmur Abdomen: Obese, soft, nontender no HSM Extremities: No edema on Neurological: Oriented, affect normal, speech normal Objective Labs Result Diagrams: 10/23/20 10:56 10/23/20 10:56 Labs: Laboratory Results - last 24 hr 10/23/20 10/23/20 10/23/20 10:56 10:56 10:56 WBC 8.3 RBC 4.86 Hgb 14.3 Hct 41.8 MCV 86.0 MCH 29.4 MCHC 34.1 RDW 13.0 Plt Count 237 Neut % (Auto) 59.1 Lymph % (Auto) 25.2 [place] % (Auto) 7.6 Eos % (Auto) 7.2 H Baso % (Auto) 0.9 Neut # (Auto) 4900 Lymph # (Auto) 2100 [place] # (Auto) 600 Eos # (Auto) 600 H Baso # (Auto) 100 PT 12.1 INR 1.0 APTT 34 Sodium 138 Potassium 4.2 Chloride 105 Carbon Dioxide 27 BUN 15 Creatinine 0.88 Estimated GFR > 60.0 BUN/Creatinine Ratio 17.0 Glucose 84 Calcium 9.2 Total Bilirubin 0.5 AST 35 ALT 37 Alkaline Phosphatase 74 Total Creatine Kinase 110 CK-MB (CK-2) 0.88 CK-MB (CK-2) Rel Index 0.8 L Troponin I 0.015 NT-Pro-B Natriuret Pep Total Protein 7.7 Albumin 4.4 Globulin 3.3 Albumin/Globulin Ratio 1.3 Lipase 33 SARS-CoV-2 (PCR) 10/23/20 10/23/20 10:56 12:23 WBC RBC Hgb Hct MCV MCH MCHC RDW Plt Count Neut % (Auto) Lymph % (Auto) [place] % (Auto) Eos % (Auto) Baso % (Auto) Neut # (Auto) Lymph # (Auto) [place] # (Auto) Eos # (Auto) Baso # (Auto) PT INR APTT Sodium Potassium Chloride Carbon Dioxide BUN Creatinine Estimated GFR BUN/Creatinine Ratio Glucose Calcium Total Bilirubin AST ALT Alkaline Phosphatase Total Creatine Kinase CK-MB (CK-2) CK-MB (CK-2) Rel Index Troponin I NT-Pro-B Natriuret Pep 86 Total Protein Albumin Globulin Albumin/Globulin Ratio Lipase SARS-CoV-2 (PCR) Negative Assessment & Plan Assessment & Plan narrative: 1. Atypical chest pain -patient presenting with more less constant nonexertional chest pain for the past week -normal EKG and troponin -admit to observation, telemetry monitoring -stress Mibi -sublingual nitroglycerin as needed -as noted a cholesterol check in March 2020 showed total 198, triglycerides 112, HDL 43, LDL of 133 2. Suspect obstructive sleep apnea -patient's significant other endorses snoring, witnessed apnea and patient is overweight with BMI greater than 30 -advised patient to have PCP refer for outpatient sleep study 3. Asthma, unknown nature of control -stable, may need to uses albuterol MDI prior to treadmill Quality VTE Deep Vein Thrombosis/Pulmonary Embolism Present on Admission: No
[2020-10-23 20:44] LABS: Troponin I < 0.012 ng/mL (0.01-0.034)
[2020-10-24] VITALS (8 sets, daily range): BP systolic 116–130; BP diastolic 75–81; PULSE 58–94; RESP 16–20; TEMP 36.2–36.9; O2SAT 95–98
--- NOTE | 2020-10-24 06:34 | PC.NURSE ---
White Kid Buffer Note-Patient has denied any chest pain, pressure, dyspnea, or lightheadedness. SB 50s while asleep, SR 60s-70s awake, no ectopi or ST changes. VSS, SpO2 >94% on RA. Ambulates independently. Given a snack this am since he will be NPO after 0800.
--- NOTE | 2020-10-24 11:50 | PM.TREADMILL ---
Cardiac Stress Test Report Referral & Results Date Patient Seen: 10/24/20 Time Patient Seen: 11:50 Requesting provider: Buster Shi Indication: chest pain Rest ECG: sinus bradycardia Procedure Note: Standard Gian protocol, 10:11, 11 METS Slightly reduced exercise capacity, ARLINE +8% Normal hemodynamic response to exercise No chest pain or anginal symptoms No significant ST changes at peak exercise; no ectopy ECG technically difficult to interpret Impression: Normal exercise stress test Please note: Actual ECG tracings can be found in the PACS system.
[2020-10-24] MEDS: SODIUM CHLORIDE 0.9% FLUSH 10 ML IV (11:55)
--- NOTE | 2020-10-24 14:00 | CM.IDA ---
Addendum entered by MOLINA Webster 10/24/20 14:16: Correction, Fernanda is patient's life partner, not legal spouse. Original Note: Initial DCP Assessment Note Patient is a 45 yo male, resident of [place], arrives w/sore left arm and numb fingertips, admitted observation for chest pain r/o PCP: Gonzales Walls Payer: Regan According to Dr Mercado, chest pain r/o today, patient off the floor this afternoon for stress test, possible DC home today or tomorrow pending results. Patient indp in room and expects to return home w/spouse upon DC, denies needs from this [employer] Plan: DC likely home w/spouse pending results from w/u today, will follow in case any DC needs or concerns arise. JOSIAH Discharge Planning/Care Management CM Discharge Assessment Start: 10/24/20 13:30 Freq: Status: Active Protocol: Document 10/24/20 13:58 JOSIAH (Rec: 10/24/20 14:00 JOSIAH [id number]) Discharge Planning Assessment Assigned [employer] MOLINA Park DPOA/Assigned Designee Name Fernanda Haywood, partner Contact Information [phone] Advance Directives? No Advance Directives on File No History Provided By Patient,Medical Record Prior Living Arrangements House Household Members children Type of transporation used prior to Drives own vehicle admit Independent with ADL's Yes Is patient alert and oriented? Yes Barriers to Discharge No Discharge Plan Home Transportation Arrangement Family Referrals Initiated None needed
--- NOTE | 2020-10-24 16:30 | DI.NM.S_ITS ---
DATE OF SERVICE: 10/23/2020 PROCEDURE PERFORMED: Exercise treadmill stress and rest myocardial perfusion imaging study with gating to assess ejection fraction and regional wall motion. ORDERING PROVIDER: Dr. Buster Shi. INDICATIONS: The patient is a 45-year-old male who was admitted with atypical chest discomfort. EXERCISE TREADMILL TESTING: The patient was able to exercise for 10 minutes 11 seconds on a standard Gian protocol suggesting mildly impaired exercise capacity with an ARLINE of +8%. He had a normal heart rate and blood pressure response, achieving a maximum heart rate of 160 BPM (91% of his predicted maximum). He had no chest discomfort or other anginal symptoms. His resting ECG is normal. With stress, the ECG tracings are corrupted by motion artifact, but immediate recovery ECGs show no concerning ST- segment depression. There were no obvious arrhythmias. At 9 minutes 28 seconds of exercise at a heart rate of 144 BPM, 26.9 millicuries of technetium-99m Myoview was injected and the patient was imaged 15 minutes later using a gated SPECT acquisition protocol. The day prior, he was injected with 22.6 millicuries of technetium-99m Myoview and was imaged 30 minutes later, again using a gated SPECT acquisition protocol. FINDINGS: 1. Raw data: There is fair myocardial tracer uptake. Lung/heart ratio was normal at 0.39 with a normal TID ratio 0.80. 2. Quantitated gated SPECT: Post-stress ejection fraction is estimated at 70% without any focal wall motion abnormality and specifically the anterior wall appears to have normal contractility. Resting ejection fraction is estimated at 54%, although visually appears to be higher than this. The resting end-diastolic volume is moderalely increased at 160 mL. 3. Myocardial perfusion imaging: Post-stress supine images shows slight heterogeneity of tracer activity, likely reflecting chest wall and diaphragmatic attenuation with improvement on the prone images which show a fairly normal perfusion pattern. The resting images show a similar perfusion pattern without any clear reversibility. IMPRESSION: 1. Normal myocardial perfusion study. 2. No evidence for significant myocardial ischemia or previous myocardial infarction. 3. Normal left ventricular systolic function without focal wall motion abnormality and probable increased left ventricular volumes. 4. Mildly reduced exercise capacity without angina or ECG evidence of ischemia. Dwayne Chambers - STANLEY/gopi/arron doc#: [id number]/job#: [id number] dd: 10/24/2020 12:56:00 dt: 10/24/2020 15:40:00 DICTATING MD/COPIES TO: Ranjith Keenan MD; Buster Shi MD COPIES MNE: MICHAEL;
--- NOTE | 2020-10-25 07:48 | PM.DS.1 ---
History of Present Illness History of Present Illness Chief complaint: chest pain/sore left arm/numb fingertips Narrative: Patient is a 45-year-old male with history of asthma came into the emergency department for evaluation of chest pain. About 1 week ago he started to develop chest pain, shortness of breath and heart racing after an intensely stressful argument with his son. The discomfort has been there to some degree most of the time. Yesterday he noticed some pain in his left arm with numbness and tingling of the fingers. But this was not associated with chest pain. He was concerned enough that he decided to come to the ER this morning and on the way there developed recurrent chest discomfort. The discomfort is fairly localized in the mid to lower sternum to the left and does not radiate. Denies nausea, vomiting but did have diaphoresis. He has no history of hypertension. His cholesterol check last year showed LDL 133. He has no significant family history of heart disease other than a grandparents. He quit cigarettes in August 2020 but has been vaping since then. His chest discomfort did improve from 5 down to 2/10 after nitroglycerin in the ED. His EKG and troponin were normal. Patient is a 45-year-old male with history of asthma came into the emergency department for evaluation of chest pain. About 1 week ago he started to develop chest pain, shortness of breath and heart racing after an intensely stressful argument with his son. The discomfort has been there to some degree most of the time. Yesterday he noticed some pain in his left arm with numbness and tingling of the fingers. But this was not associated with chest pain. He was concerned enough that he decided to come to the ER this morning and on the way there developed recurrent chest discomfort. The discomfort is fairly localized in the mid to lower sternum to the left and does not radiate. Denies nausea, vomiting but did have diaphoresis. He has no history of hypertension. His cholesterol check last year showed LDL 133. He has no significant family history of heart disease other than a grandparents. He quit cigarettes in August 2020 but has been vaping since then. His chest discomfort did improve from 5 down to 2/10 after nitroglycerin in the ED. His EKG and troponin were normal. Discharge Providers Provider Date of admission: 10/23/20 12:07 Discharge Date: 10/24/20 Primary care physician: Gonzales Walls MD Discharge provider: Iram Mercado MD Summary Hospital Course Discharge Diagnosis: Atypical Chest Pain Asthma Hospital Course: Patient was admitted to the hospital for evaluation of chest pain. This occurred following an argument with a family member. The patient underwent a Gabi stress scan which was negative. The patient had negative troponins and no acute St T elevations. Patient had no further chest pain and was deemed appropriate for discharge home. He will follow up with his PCP and discuss further evaluation. Status at Discharge Cognitive/behavioral status at discharge: oriented Functional status at discharge: independent ambulation Overall status at discharge: patient is back to baseline Time Spent with Patient Time spent: Less than 30 minutes Exam Vital Signs (past 8 hours): Oxygen Delivery Method Room Air Oxygen Flow Rate 0 Narrative Exam Narrative: Pleasant male in No acute distress Lungs: clear to auscultation CV: RRR nl Sl S2 Abd: soft/ non tender/ non distended Ext: no edema Objective Labs Result Diagrams: 10/23/20 10:56 10/23/20 10:56 [facility] Medical History Asthma Dental infection Surgical History (Updated 07/09/18 @ 21:51 by Ami Alvarez DO) History of hand surgery Family History (Updated 07/08/19 @ 16:19 by Paulina Hodges MD) Grandmother Age: 97 Cerebrovascular accident (CVA), unspecified mechanism Mother Cancer Father Diabetes mellitus Menieres disease Social History household members: children Smoking Status: Current every day smoker Discharge Assessment & Plan Assessment and Plan Assessment: atypical chest pain Plan of Treatment: follow up with PCP next week Discharge Plan Discharge Plan Patient Disposition: Home Discharge orders & Medications Prescriptions: Continued albuterol sulfate 90 mcg/actuation HFA aerosol inhaler 2 puff INHALATION Q4-6H PRN (Reason: shortness of breath) Qty: 8 RF: 5 Follow up/Referrals: Gonzales Walls MD [Primary Care Provider] - Discharge Health Status Multidrug resistant organism: No MDRO Diet/Activity/Treatments Diet: Diet as Tolerated Visit Report/Discharge Packet Instructions: DI for Chest Pain Discharge Data Primary Care Provider: Gonzales Walls Attending Provider: Buster Shi VTE Deep Vein Thrombosis/Pulmonary Embolism Present on Admission: No
== END 2020-10-24 14:46 | disposition home or self-care (01) ==
LOC: ED 12:03 → AC 12:08 → ICU 13:28
PROVIDERS: Admitting Provider Internal Medicine; Emergency Provider Emergency Medicine; PCP Student in an Organized Health Care Education/Training Program; Referring Provider Emergency Medicine; Visit Provider Internal Medicine
DX: R07.9 Chest pain, unspecified (principal); F17.210 Nicotine dependence, cigarettes, uncomplicated; J45.909 Unspecified asthma, uncomplicated; E66.9 Obesity, unspecified; Z20.822 Contact with and (suspected) exposure to COVID-19
CPT/HCPCS: 36415; 71045; 78452; 80053; 82550; 82553; 83690; 83880; 84484; 85025; 85610; 85730; 87635; 87797; 93005; 93017; 99283; 99284; C9803; G0378; A9270; A9502

== ENCOUNTER → 2020-11-02 17:09 | Outpatient (CLI) | payer OTHER, SELFPAY ==
[2020-10-23 13:45] VITALS: BMI 34.4
--- NOTE | 2020-11-02 17:11 | DI.RAD.S_ITS ---
PROCEDURE: XR ORBIT RT INDICATIONS: Prior to MRI; has h/o metal in the eye TECHNIQUE: 3 views of the orbits acquired. COMPARISON: None. FINDINGS: Bones: No fractures; orbital rims appear intact throughout. No suspicious bony lesions. Visualized sinuses appear clear. Soft tissues: No suspicious soft tissue calcifications or densities. No metallic foreign bodies identified in the bilateral orbits. Dental amalgam noted in the right mandible. Metallic jewelry noted in the bilateral ear lobes IMPRESSION: No radiographic evidence for metallic foreign bodies within the orbits. Dictated by: Tarun Villarreal M.D. on 11/03/2020 at 0:13 Approved by: Tarun Villarreal M.D. on 11/03/2020 at 0:14
--- NOTE | 2020-11-02 17:11 | DI.RAD.S_ITS ---
PROCEDURE: XR ORBIT LT INDICATIONS: Prior to MRI; has h/o metal in the eye TECHNIQUE: 3 views of the orbits acquired. COMPARISON: None. FINDINGS: Bones: No fractures; orbital rims appear intact throughout. No suspicious bony lesions. Visualized sinuses appear clear. Soft tissues: No suspicious soft tissue calcifications or densities. No suspicious metallic densities identified in the orbits. Metallic dental amalgam noted in the right mandible. Metallic jewelry noted in the bilateral earlobes. IMPRESSION: No radiographic evidence for metallic foreign bodies within the bilateral orbits. Dictated by: Tarun Villarreal M.D. on 11/03/2020 at 0:11 Approved by: Tarun Villarreal M.D. on 11/03/2020 at 0:13
== END ==
PROVIDERS: PCP Student in an Organized Health Care Education/Training Program; Referring Provider Student in an Organized Health Care Education/Training Program; Visit Provider Student in an Organized Health Care Education/Training Program
DX: Z18.10 Retained metal fragments, unspecified (principal)
CPT/HCPCS: 70200

== ENCOUNTER → 2020-11-09 16:50 | Outpatient (CLI) | payer OTHER, SELFPAY ==
[2020-10-23 13:45] VITALS: BMI 34.4
--- NOTE | 2020-11-09 16:51 | DI.MRI.S_ITS ---
PROCEDURE: MR CERVICAL SPINE WO CON INDICATIONS: Left arm paresthesia and weakness TECHNIQUE: Noncontrast sagittal T1 spin echo and T2 fast spin echo, sagittal STIR, foraminal oblique sagittal T2 fast spin echo, and axial gradient echo or T2 fast spin echo through the cervical spine. COMPARISON: None. FINDINGS: Image quality: Diagnostic, with note made of motion artifact. Alignment and Curvature: There is normal bony alignment. Bone Marrow: Marrow demonstrates normal overall signal. Spinal Cord: Visualized spinal cord has normal size and signal. No cerebellar tonsillar herniation. Paraspinous Soft Tissues: No paravertebral masses. Prevertebral soft tissues are normal in thickness. C2-C3: The disc height is well-preserved. Loss of disc signal is seen at this level. A mild degree of generalized disc osteophyte complex is seen. Mild facet joint hypertrophy is seen. Mild bilateral neural foraminal narrowing is seen. No significant central canal narrowing is seen. C3-C4: The disc height is well-preserved. Loss of disc signal is seen at this level. Moderate generalized disc osteophyte complex is seen. There is a mild central disc osteophyte protrusion seen. Mild facet joint hypertrophy is seen. Moderate bilateral neural foraminal narrowing is seen. Mild central canal narrowing is seen. C4-C5: The disc height is well-preserved. Loss of disc signal is seen at this level. Moderate disc osteophyte complex is seen, with a central disc osteophyte protrusion. There is [id number] right-sided and moderate left-sided facet hypertrophy seen. There is moderate to severe left-sided and at least moderate right-sided neural foraminal narrowing seen at this level. Moderate central canal narrowing is seen. There is associated mass effect upon the ventral spinal cord. C5-C6: The disc height is well-preserved. Loss of disc signal is seen at this level. Moderate disc osteophyte complex is seen, with a central/right disc osteophyte protrusion. Mild to moderate facet hypertrophy is seen at this level. There is moderate bilateral neural foraminal narrowing seen. Moderate to severe central canal narrowing is seen, with associated mass effect upon the ventral spinal cord, as on series 5, image 28. C6-C7: Mild loss of disc height is seen. Loss of disc signal is seen. Moderate disc osteophyte complex is seen, with a central/right disc osteophyte protrusion, which continues into the right neural foramen. Mild facet joint hypertrophy is seen. There is moderate right-sided and moderate to severe left-sided neural foraminal narrowing seen. At least moderate central canal narrowing is seen, with mass effect upon the ventral spinal cord, as on series 5, image 33. C7-T1: No significant abnormality can be seen. 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 Dictated by: Michele Delarosa M.D. on 11/09/2020 at 17:24 Approved by: Michele Delarosa M.D. on 11/09/2020 at 17:28
== END ==
PROVIDERS: PCP Student in an Organized Health Care Education/Training Program; Referring Provider Student in an Organized Health Care Education/Training Program; Visit Provider Student in an Organized Health Care Education/Training Program
DX: M47.812 Spondylosis without myelopathy or radiculopathy, cervical region (principal); R20.2 Paresthesia of skin; R29.898 Other symptoms and signs involving the musculoskeletal system
CPT/HCPCS: 72141

== ENCOUNTER → 2020-11-21 16:56 | Outpatient (CLI) | payer OTHER, SELFPAY ==
[2020-10-23 13:45] VITALS: BMI 34.4
--- NOTE | 2020-11-21 17:01 | DI.RAD.S_ITS ---
PROCEDURE: XR CERVICAL SPINE 4V OR 5V INDICATIONS: STENOSIS RADICULOPATHY AT C-6 TECHNIQUE: 5 views of the cervical spine acquired. COMPARISON: None. FINDINGS: Bones: No fractures or dislocations to the tip level. Oblique images demonstrate no bony foraminal stenoses. Soft tissues: No prevertebral soft tissue swelling. IMPRESSION: Mild degenerative disc disease and facet osteoarthritis without suspected spinal or foraminal stenosis. Dictated by: Tu Montes M.D. on 11/21/2020 at 19:36 Approved by: Tu Montes M.D. on 11/21/2020 at 19:37
== END ==
PROVIDERS: PCP Student in an Organized Health Care Education/Training Program; Referring Provider Student in an Organized Health Care Education/Training Program; Visit Provider Student in an Organized Health Care Education/Training Program
DX: M47.22 Other spondylosis with radiculopathy, cervical region (principal); M50.10 Cervical disc disorder with radiculopathy, unspecified cervical region; M48.02 Spinal stenosis, cervical region; R20.2 Paresthesia of skin
CPT/HCPCS: 72050

== ENCOUNTER → 2020-12-11 16:46 | Outpatient (CLI) | payer OTHER, SELFPAY ==
[2020-10-23 13:45] VITALS: BMI 34.4
--- NOTE | 2020-12-11 | DI.RAD.S_ITS ---
PROCEDURE: XR CERVICAL SPINE 4V OR 5V INDICATIONS: M48.02 TECHNIQUE: 5 views of the cervical spine were acquired. COMPARISON: [facility], CR, XR CERVICAL SPINE 4V OR 5V, 11/21/2020, 17:18. FINDINGS: Bones: No fractures or dislocations to the T1 level. No suspicious bony lesions. There is normal range of motion between flexion and extension, with preserved normal bony alignment. Intervertebral disc height normally preserved at all levels. Soft tissues: Prevertebral soft tissues are normal in thickness. IMPRESSION: 1. Normal examination. 2. Normal range of motion in the flexed and extended position. 3. No osseous lesion. If symptoms and/or clinical suspicion for pathology persists, evaluation with MRI should be considered for further assessment. Dictated by: Dorothy Sheppard MD, PhD on 12/12/2020 at 17:16 Approved by: Dorothy Sheppard MD, PhD on 12/12/2020 at 17:17
== END ==
PROVIDERS: PCP Neurological Surgery; Referring Provider Neurological Surgery; Visit Provider Neurological Surgery
DX: M48.02 Spinal stenosis, cervical region (principal)
CPT/HCPCS: 72050

== ENCOUNTER 2021-01-28 17:11 | Emergency (ER) | payer OTHER, SELFPAY ==
[2020-10-23 13:45] VITALS: BMI 34.4
[2021-01-28 17:48] VITALS: BP 131/76; PULSE 75; RESP 12; TEMP 37; O2SAT 96; BMI 35.2
--- NOTE | 2021-01-28 19:51 | ED.NECK ---
HPI - Neck Pain/Injury General Chief Complaint: Neck Pain/Injury Stated Complaint: NECK PAIN Time Seen by Provider: 01/28/21 18:40 Source: patient, family and old records reviewed Mode of arrival: Ambulatory Limitations: no limitations History of Present Illness HPI Narrative: This is a 45-year-old male comes emergency department complaint of neck pain. Patient has had some increased popping with mild movement. He has had into his upper chest and upper extremities. This has been longstanding any states he had extensive cardiac evaluation and was cleared from a cardiac standpoint. This is a somewhat typical pattern but worse than his normal. He is not appreciated significant new weakness in his upper extremities. 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 Patient has not had fevers. He has not had any shortness of breath. Has not any other GI or urinary symptoms. He takes ibuprofen and gabapentin for pain and has not been doing well to control his symptoms. He also takes montelukast. Patient states he does need to be able to drive. He has not had any new trauma or injuries or sudden changes that have exacerbated his symptoms. He denies any new numbness or. He does have follow-up on at [facility] to see a surgeon for his neck. Related Data Home Medications Medication Instructions Recorded Confirmed multivitamin 1 tab PO DAILY 01/02/21 01/02/21 Previous Rx's Medication Instructions Recorded albuterol sulfate 90 mcg/actuation 2 puff INHALATION Q4-6H PRN #8 gram 09/19/20 aerosol inhaler omeprazole 20 mg capsule,delayed 20 mg PO DAILY #30 cap 11/16/20 release methocarbamol 750 mg tablet 1,500 mg PO Q8H PRN #90 tab 12/06/20 montelukast 10 mg tablet 10 mg PO DAILY #90 tab 12/06/20 gabapentin 300 mg capsule 300 mg PO BEDTIME #30 cap 01/02/21 prednisone 50 mg PO DAILY #5 tab 01/28/21 Allergies Allergy/AdvReac Type Severity Reaction Status Date / Time latex Allergy Mild RASH Verified 01/28/21 17:53 Review of Systems Review of Systems ROS Unobtainable: All systems reviewed & are unremarkable except as noted in HPI and below Patient History Medical History Asthma Dental infection Surgical History History of hand surgery Family History Grandmother Age: 97 Cerebrovascular accident (CVA), unspecified mechanism Mother Cancer Sleep apnea Hypertension Depression Father Diabetes mellitus Menieres disease Loud snoring Insomnia Alcohol abuse Substance abuse Family/Other Loud snoring Sleep apnea Hypertension Diabetes mellitus Heart disease Dementia Alcohol abuse Family/Other Loud snoring Hypertension Alcohol abuse Social History household members: children Smoking Status: Current every day smoker Smoking Status: Current every day smoker tobacco type: vaping alcohol intake frequency: holidays/special occasions only Substance Use Type: does not use Exam Narrative Exam Narrative: GENERAL: Alert and oriented x three, BMI of 35, well-appearing male in mild distress. HEENT: Head normocephalic, atraumatic, EOMI, pupils reactive, face symmetric, moist mucous membranes NECK: Supple, full range of motion CARDIOVASCULAR: Regular rate and rhythm without murmurs, rubs or gallops. RESPIRATORY: Breath sounds equal bilaterally, no wheezes rales or rhonchi. ABDOMEN: Soft, nontender. Normoactive bowel sounds all 4 quadrants. No guarding or rebound, rigidity, no mass : No CVA tenderness BACK: No cervical, thoracic or lumbar vertebral point tenderness. Patient has normal range of motion. Patient's gait is normal. 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 2+ radial pulse bilaterally. Normal sensation bilaterally. Patient has full range of motion. EXTREMITIES: Normal range of motion, no clubbing or edema. Neurovascularly intact NEUROLOGICAL: Cranial nerves II through XII grossly intact. Moving all extremities. SKIN: Warm, dry, no petechiae, no rashes or lesions. Initial Vital Signs Initial Vital Signs: Vital Signs Temperature 98.6 F 01/28/21 17:48 Pulse Rate 75 01/28/21 17:48 Respiratory Rate 12 01/28/21 17:48 Blood Pressure 131/76 01/28/21 17:48 Pulse Oximetry 96 01/28/21 17:48 Course Orders Ordered: Discontinued Medications Ketorolac Tromethamine (Ketorolac 30 Mg/Ml Vial) 60 mg IM NOW ONE Stop: 01/28/21 20:35 Last Admin: 01/28/21 20:52 Dose: 60 mg Documented by: ANAND Prednisone (Prednisone 20 Mg Prepack) 1 bottle MISC SEEINSTR ONE Stop: 01/28/21 20:35 Last Admin: 01/28/21 20:52 Dose: 1 bottle Documented by: ANAND Vital Signs Vital signs: Vital Signs - 8 hr 01/28/21 21:02 Pulse Rate 65 Respiratory Rate 12 Blood Pressure 117/74 Pulse Oximetry 98 MDM - Neck Pain/Injury Imaging Data MRI c spine 10/2020: Radiologist's Impression: [address] [id number] Resonance ReportSigned Patient: Dwayne Chambers WMR#: [id number]: 1975Acct:[id number]/Sex: 45 / MDate of Service: 11/09/20Loc: MRIAccession Number: [id number] Procedure: MR cervical spine wo con Ordering Provider: Gonzales Walls MD PROCEDURE: MR CERVICAL SPINE WO CON INDICATIONS: Left arm paresthesia and weakness TECHNIQUE: Noncontrast sagittal T1 spin echo and T2 fast spin echo, sagittal STIR, foraminal oblique sagittal T2 fast spin echo, and axial gradient echo or T2 fast spin echo through the cervical spine. COMPARISON: None. FINDINGS: Image quality: Diagnostic, with note made of motion artifact. Alignment and Curvature: There is normal bony alignment. Bone Marrow: Marrow demonstrates normal overall signal. Spinal Cord: Visualized spinal cord has normal size and signal. No cerebellar tonsillar herniation. Paraspinous Soft Tissues: No paravertebral masses. Prevertebral soft tissues are normal in thickness. C2-C3: The disc height is well-preserved. Loss of disc signal is seen at this level. A mild degree of generalized disc osteophyte complex is seen. Mild facet joint hypertrophy is seen. Mild bilateral neural foraminal narrowing is seen. No significant central canal narrowing is seen. C3-C4: The disc height is well-preserved. Loss of disc signal is seen at this level. Moderate generalized disc osteophyte complex is seen. There is a mild central disc osteophyte protrusion seen. Mild facet joint hypertrophy is seen. Moderate bilateral neural foraminal narrowing is seen. Mild central canal narrowing is seen. C4-C5: The disc height is well-preserved. Loss of disc signal is seen at this level. Moderate disc osteophyte complex is seen, with a central disc osteophyte protrusion. There is [id number] right-sided and moderate left-sided facet hypertrophy seen. There is moderate to severe left-sided and at least moderate right-sided neural foraminal narrowing seen at this level. Moderate central canal narrowing is seen. There is associated mass effect upon the ventral spinal cord. C5-C6: The disc height is well-preserved. Loss of disc signal is seen at this level. Moderate disc osteophyte complex is seen, with a central/right disc osteophyte protrusion. Mild to moderate facet hypertrophy is seen at this level. There is moderate bilateral neural foraminal narrowing seen. Moderate to severe central canal narrowing is seen, with associated mass effect upon the ventral spinal cord, as on series 5, image 28. C6-C7: Mild loss of disc height is seen. Loss of disc signal is seen. Moderate disc osteophyte complex is seen, with a central/right disc osteophyte protrusion, which continues into the right neural foramen. Mild facet joint hypertrophy is seen. There is moderate right-sided and moderate to severe left-sided neural foraminal narrowing seen. At least moderate central canal narrowing is seen, with mass effect upon the ventral spinal cord, as on series 5, image 33. C7-T1: No significant abnormality can be seen. 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 Dictated by: Mcihele Delarosa M.D. on 11/09/2020 at 17:24 Approved by: Michele Delarosa M.D. on 11/09/2020 at 17:28 MDM Narrative Medical decision making narrative: This is a 45-year-old male with known cervical of degenerative disease who is supposed to follow-up with his surgeon at [facility] on . Patient is appreciated that his neck has been popping frequently and he has had some increased pain with a typical pattern and turns in location. Patient has had any new traumas or injuries. He has not had any new neurologic changes, he does have some weakness on the left compared to the right but per patient and family this is not new for him. Patient will use that some of this weakness is believed to be secondary to his nerve impingement at his left elbow. Patient is seeking some improvement in his pain control he has been taking ibuprofen and gabapentin. He is seeking something nonnarcotic so he can continue working. Patient and family and I discussed that he does not have any red flag symptoms that warrant trying to obtain an MRI. Patient prior imaging was given to patient on disk so that he can share this with his surgeon. Discharge Plan Departure Patient Disposition: Home Clinical Impression: Cervical radiculopathy Instructions: DI for Cervical Radiculopathy Activity Restrictions/Additional Instructions: Follow up at your appointment with [facility] on . Take the disc with images from October 2020 with you to your appointment. You may continue home gabapentin and other medications. Take steroids until gone. Prescription to [facility] in [place]. Please return for fevers, rapidly worsening pain or uncontrolled pain, new weakness, loss of sensation, in a but usually extremity, lightheadedness or passing out, loss of bowel or bladder control, new shortness of breath, new or different chest pain or other concerning symptoms. Prescriptions: New prednisone 50 mg tablet 50 mg PO DAILY Qty: 5 RF: 0 No Action albuterol sulfate 90 mcg/actuation HFA aerosol inhaler 2 puff INHALATION Q4-6H PRN (Reason: shortness of breath) Qty: 8 RF: 5 methocarbamol 750 mg tablet 1,500 mg PO Q8H PRN (Reason: muscle spasm) Qty: 90 RF: 0 montelukast [Singulair] 10 mg tablet 10 mg PO DAILY Qty: 90 RF: 3 gabapentin 300 mg capsule 300 mg PO BEDTIME Qty: 30 RF: 0 omeprazole 20 mg capsule,delayed release(DR/EC) 20 mg PO DAILY Qty: 30 RF: 0 multivitamin Tablet 1 tab PO DAILY RF: 0 Referrals: Gonzales Walls MD [Primary Care Provider] -
[2021-01-28] MEDS: predniSONE 20 MG PREPACK 1 BOTTLE MISC (20:52)
[2021-01-28] MEDS: KETOROLAC 30 MG/ML VIAL 60 MG IM (20:52)
[2021-01-28 21:02] VITALS: BP 117/74; PULSE 65; RESP 12; O2SAT 98
== END 2021-01-28 21:03 | disposition home or self-care (01) ==
PROVIDERS: Emergency Provider Emergency Medicine; PCP Student in an Organized Health Care Education/Training Program
DX: M54.12 Radiculopathy, cervical region (principal)
CPT/HCPCS: 96372; 99283; J1885

== ENCOUNTER 2021-05-10 17:11 | Emergency (ER) | payer OTHER, SELFPAY ==
[2020-10-23 13:45] VITALS: BMI 34.4
[2021-05-10 17:31] VITALS: BP 136/82; PULSE 70; RESP 15; TEMP 36.6; O2SAT 97; BMI 35.2
--- NOTE | 2021-05-10 22:03 | ED_ITS ---
HPI - Back Pain/Injury General Chief Complaint: Back Pain/Injury Stated Complaint: PULLED HIS BACK Time Seen by Provider: 05/10/21 21:59 Source: patient Limitations: no limitations History of Present Illness HPI Narrative: Patient is a 46-year-old male with chronic ongoing back issues presenting today with worsening back pain on left side. He has had on going back pain with right leg weakness he has had multiple MRIs and workup at [facility]. His his right leg is weak he has difficulty ambulating at baseline because of it however he continues to work. Today he bent over to pick something up he actually did not pick it up he had instant pain on the left side with radiation down the left leg. He has had no change in bowel or bladder habits. He has numbness and tingling on the lateral side of his left leg. He thought he was having some weakness and difficulty ambulating. He has had issues ongoing with his back and neck with spinal stenosis and cervical radiculopathy since October of 2020. He no longer takes pain medications at looks as though he was seen by Dr. chadwick in October but since then he has been going to [facility]. He generally works to the pain. He did not fall. No fevers. He bent over at 6:30 a.m. this morning and has continued to have shoes all day and decided to come to the emergency department. Related Data Home Medications Medication Instructions Recorded Confirmed multivitamin 1 tab PO DAILY 01/02/21 01/02/21 Previous Rx's Medication Instructions Recorded omeprazole 20 mg capsule,delayed 20 mg PO DAILY #30 cap 11/16/20 release methocarbamol 750 mg tablet 1,500 mg PO Q8H PRN #90 tab 12/06/20 montelukast 10 mg tablet 10 mg PO DAILY #90 tab 12/06/20 (Singulair) gabapentin 300 mg capsule 300 mg PO BEDTIME #30 cap 01/02/21 prednisone 50 mg tablet 50 mg PO DAILY #5 tab 01/28/21 albuterol sulfate 90 mcg/actuation 2 puff INHALATION Q4-6H PRN #8 gram 04/01/21 aerosol inhaler cyclobenzaprine 10 mg tablet 10 mg PO TID PRN #14 tab 05/10/21 prednisone 50 mg tablet 50 mg PO DAILY #5 tab 05/10/21 Allergies Allergy/AdvReac Type Severity Reaction Status Date / Time latex Allergy Mild RASH Verified 05/10/21 17:31 Review of Systems Review of Systems Narrative: GENERAL: Denies chills, fatigue, malaise, fever, sweats, travel HEENT: Denies sinus pain, ear pain, sore throat, difficulty swallowing, neck pain RESPIRATORY: Denies dyspnea, cough, wheezing, hemoptysis, sputum. CARDIOVASCULAR: Denies chest pain, palpitations, orthopnea, edema GASTROINTESTINAL: Denies nausea, vomiting, abdominal pain, diarrhea, con stipation, melena. : Denies dysuria, frequency, incontinence, hematuria, urinary retention, flank pain. MUSCULOSKELETAL: See HPI SKIN: No rash, no erythema, no pruritus NEUROLOGIC: See HPI PSYCHIATRIC: No concerning psychosocial issues. 12 point review of systems is negative except for those stated above and HPI Patient History Medical History Asthma Dental infection Surgical History History of hand surgery Family History Grandmother Age: 97 Cerebrovascular accident (CVA), unspecified mechanism Mother Cancer Sleep apnea Hypertension Depression Father Diabetes mellitus Menieres disease Loud snoring Insomnia Alcohol abuse Substance abuse Family/Other Loud snoring Sleep apnea Hypertension Diabetes mellitus Heart disease Dementia Alcohol abuse Family/Other Loud snoring Hypertension Alcohol abuse Social History household members: children Smoking Status: Current every day smoker Smoking Status: Current every day smoker tobacco type: vaping alcohol intake frequency: holidays/special occasions only Substance Use Type: does not use Exam Initial Vital Signs Initial Vital Signs: Vital Signs Temperature 97.9 F 05/10/21 17:31 Pulse Rate 70 05/10/21 17:31 Respiratory Rate 15 05/10/21 17:31 Blood Pressure 136/82 05/10/21 17:31 Pulse Oximetry 97 05/10/21 17:31 GENERAL: Well-appearing, well-nourished and in no acute distress. HEENT: Head atraumatic,EOMI, pupils reactive, face symmetric, moist mucous membranes CARDIOVASCULAR: Regular rate and rhythm without murmurs, rubs or gallops. RESPIRATORY: Breath sounds equal bilaterally, no wheezes rales or rhonchi. BACK: No vertebral tenderness no step-offs he is tender in the left paraspinal muscles in the lower lumbar area. EXTREMITIES: Normal range of motion, no clubbing or edema. Neurovascularly intact NEUROLOGICAL: Alert and oriented x4. I have personally watched the patient ambulate in the emergency department he is able to bear weight on both extremities and walk without assistance. On the gurney he is only able to lift his left leg minimally. SKIN: Warm, dry, no laceration, no petechiae, no rashes or lesions. Course Orders Ordered: Discontinued Medications Ketorolac Tromethamine (Ketorolac 30 Mg/Ml Vial) 30 mg IM NOW ONE Stop: 05/10/21 22:19 Last Admin: 05/10/21 22:29 Dose: 30 mg Documented by: TAMIKA Vital Signs Vital signs: Vital Signs - 8 hr 05/10/21 23:26 Pulse Rate 72 Respiratory Rate 16 Pulse Oximetry 100 MDM - Back Pain/Injury MDM Narrative Medical decision making narrative: The patient has been having ongoing at chronic back pain issues. He has been on methocarbamol gabapentin steroid he says the only thing that has helped in the past is steroids. I will give him a short course of prednisone to see if it helps. He certainly has no concerning symptoms, no changes in bowel or bladder habits no fever no midline tenderness. He did not fall or have any trauma. He is tender in his left lower lumbar region in the paraspinal muscles. At this time symptoms are most consistent with a sciatica on the left side. He has had ongoing issues with the right leg. He has been seen at [facility] he has been seen by Dr. Dixon although not since October. He is supposed to be seen by Neurology but not until June. At this time I did recommend following up with Dr. chadwick for possible physical therapy and pain management. He is willing to try different muscle relaxer will try Flexeril. Discharge Plan Departure Patient Disposition: Home Clinical Impression: Acute back pain with sciatica Qualifiers: Laterality: left Qualified Code(s): M54.42 - Lumbago with sciatica, left side Instructions: DI for Back Pain With Sciatica Activity Restrictions/Additional Instructions: *You have been diagnosed with back pain with sciatic *What to do: At this time please continue to follow-up with [facility]. You may try follow-up with Dr. chadwick he may be able to help get a set up physical therapy which may help. 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 Tylenol 1000 mg every 6 hours if needed for [id number] pain *Follow up with your primary care provider in 2-3 days *Return to ER if you should have increasing weakness in the legs, loss of urine or stool, fevers or any new, worsening or concerning symptoms Prescriptions: New cyclobenzaprine 10 mg tablet 10 mg PO TID PRN (Reason: muscle spasm) Qty: 14 RF: 0 prednisone 50 mg tablet 50 mg PO DAILY Qty: 5 RF: 0 No Action methocarbamol 750 mg tablet 1,500 mg PO Q8H PRN (Reason: muscle spasm) Qty: 90 RF: 0 montelukast [Singulair] 10 mg tablet 10 mg PO DAILY Qty: 90 RF: 3 gabapentin 300 mg capsule 300 mg PO BEDTIME Qty: 30 RF: 0 albuterol sulfate 90 mcg/actuation HFA aerosol inhaler 2 puff INHALATION Q4-6H PRN (Reason: shortness of breath) Qty: 8 RF: 5 omeprazole 20 mg capsule,delayed release(DR/EC) 20 mg PO DAILY Qty: 30 RF: 0 prednisone 50 mg tablet 50 mg PO DAILY Qty: 5 RF: 0 multivitamin Tablet 1 tab PO DAILY RF: 0 Referrals: Gonzales Walls MD [Primary Care Provider] -
[2021-05-10] MEDS: KETOROLAC 30 MG/ML VIAL IM (22:29)
[2021-05-10 23:26] VITALS: PULSE 72; RESP 16; O2SAT 100
== END 2021-05-10 23:26 | disposition home or self-care (01) ==
PROVIDERS: Emergency Provider Emergency Medicine; PCP Student in an Organized Health Care Education/Training Program
DX: M54.42 Lumbago with sciatica, left side (principal)
CPT/HCPCS: 96372; 99283; J1885

== ENCOUNTER 2021-06-05 10:25 | Emergency (ER) | payer OTHER, SELFPAY ==
[2020-10-23 13:45] VITALS: BMI 34.4
[2021-06-05 10:28] VITALS: BP 146/95; PULSE 84; RESP 20; TEMP 37.4; O2SAT 99; BMI 35.2
[2021-06-05 11:09] LABS: COVID19 -Nasal RAPID POSITIVE (Negative)
--- NOTE | 2021-06-05 11:36 | ED.GENADULT ---
HPI - General Adult General Chief complaint: Upper Respiratory Symptoms Stated complaint: headache, shortness breath, fatigue x3days Time Seen by Provider: 06/05/21 10:57 Source: patient Mode of arrival: Ambulatory Limitations: no limitations History of Present Illness HPI narrative: Patient is a 46-year-old male. History of asthma who is here for a couple days of sore throat. It then progressed to shortness of breath and cough and fatigue. He then had a fever yesterday. He is unvaccinated against COVID-19. He has had use his inhaler more often recently. Related Data Home Medications Medication Instructions Recorded Confirmed multivitamin 1 tab PO DAILY 01/02/21 01/02/21 Previous Rx's Medication Instructions Recorded omeprazole 20 mg capsule,delayed 20 mg PO DAILY #30 cap 11/16/20 release methocarbamol 750 mg tablet 1,500 mg PO Q8H PRN #90 tab 12/06/20 montelukast 10 mg tablet 10 mg PO DAILY #90 tab 12/06/20 (Singulair) gabapentin 300 mg capsule 300 mg PO BEDTIME #30 cap 01/02/21 prednisone 50 mg tablet 50 mg PO DAILY #5 tab 01/28/21 albuterol sulfate 90 mcg/actuation 2 puff INHALATION Q4-6H PRN #8 gram 04/01/21 aerosol inhaler cyclobenzaprine 10 mg tablet 10 mg PO TID PRN #14 tab 05/10/21 prednisone 50 mg tablet 50 mg PO DAILY #5 tab 05/10/21 Allergies Allergy/AdvReac Type Severity Reaction Status Date / Time latex Allergy Mild RASH Verified 06/05/21 10:38 Review of Systems Constitutional Constitutional: Reports fever(s) ENT Ears, Nose, Mouth, and Throat: Reports as per HPI Cardiovascular Cardiovascular: Reports system reviewed and no additional complaints, except as documented Respiratory Respiratory: Reports as per HPI Gastrointestinal Gastrointestinal: Reports system reviewed and no additional complaints, except as documented Integumentary/Breasts Skin/Breast: Reports system reviewed and no additional complaints, except as documented Neurologic Neurologic: Reports system reviewed and no additional complaints, except as documented Hematologic/Lymphatic On Anticoagulants: No Patient History Medical History Asthma Dental infection Surgical History History of hand surgery Family History Grandmother Age: 97 Cerebrovascular accident (CVA), unspecified mechanism Mother Cancer Sleep apnea Hypertension Depression Father Diabetes mellitus Menieres disease Loud snoring Insomnia Alcohol abuse Substance abuse Family/Other Loud snoring Sleep apnea Hypertension Diabetes mellitus Heart disease Dementia Alcohol abuse Family/Other Loud snoring Hypertension Alcohol abuse Social History household members: children Smoking Status: Current every day smoker Smoking Status: Current every day smoker tobacco type: vaping alcohol intake frequency: holidays/special occasions only Substance Use Type: does not use Exam Initial Vital Signs Initial Vital Signs: Vital Signs Temperature 99.4 F 06/05/21 10:28 Pulse Rate 84 06/05/21 10:28 Respiratory Rate 20 06/05/21 10:28 Blood Pressure 146/95 H 06/05/21 10:28 Pulse Oximetry 99 06/05/21 10:28 HENMT Head: normal to inspection and normocephalic Eyes General: appearance normal, both eyes and all related structures Resp Effort & Inspection: normal respiratory effort Auscultation: clear to auscultation bilaterally Cardio Rate: regular rate Skin General: no rashes or lesions noted Neuro General: patient alert, patient awake, patient oriented x3 and moves all extremities Extrem General: normal to inspection and capillary refill normal Psych Appearance: grossly normal and well kempt Course Orders Ordered: ED Orders 06/05/21 10:42 COVID19 -Nasal swab/Pre-Proc Stat Vital Signs Vital signs: Vital Signs - 8 hr 06/05/21 10:28 Temperature 99.4 F Pulse Rate 84 Respiratory Rate 20 Blood Pressure 146/95 H Pulse Oximetry 99 Medical Decision Making Lab Data Labs: Lab Results 06/05/21 Range/Units 10:42 SARS-CoV-2 (PCR) Positive H (Negative) MDM Narrative Medical decision making narrative: Patient is COVID positive. He is afebrile. No respiratory distress. Not hypoxic. Will discharge patient home with strict return precautions. He expressed understanding and agreement. Discharge Plan Departure Patient Disposition: Home Clinical Impression: COVID-19 Instructions: DI for COVID-19 (Suspected or Confirmed ) Activity Restrictions/Additional Instructions: Your COVID-19 test today was positive. Because of this you do need to quarantine yourself for the next 10 days and be fever free for 24 hours and your symptoms need to be improving. Contact your primary doctor for follow-up. Return to the emergency department for any worsening problems breathing. Prescriptions: No Action methocarbamol 750 mg tablet 1,500 mg PO Q8H PRN (Reason: muscle spasm) Qty: 90 RF: 0 montelukast [Singulair] 10 mg tablet 10 mg PO DAILY Qty: 90 RF: 3 gabapentin 300 mg capsule 300 mg PO BEDTIME Qty: 30 RF: 0 albuterol sulfate 90 mcg/actuation HFA aerosol inhaler 2 puff INHALATION Q4-6H PRN (Reason: shortness of breath) Qty: 8 RF: 5 omeprazole 20 mg capsule,delayed release(DR/EC) 20 mg PO DAILY Qty: 30 RF: 0 prednisone 50 mg tablet 50 mg PO DAILY Qty: 5 RF: 0 cyclobenzaprine 10 mg tablet 10 mg PO TID PRN (Reason: muscle spasm) Qty: 14 RF: 0 prednisone 50 mg tablet 50 mg PO DAILY Qty: 5 RF: 0 multivitamin Tablet 1 tab PO DAILY RF: 0 Referrals: Gonzales Walls MD [Primary Care Provider] -
[2021-06-05 11:47] VITALS: BP 139/92; PULSE 86; TEMP 36.9; O2SAT 100
== END 2021-06-05 11:56 | disposition home or self-care (01) ==
LOC: ED 12:06
PROVIDERS: Emergency Provider Emergency Medicine; PCP Student in an Organized Health Care Education/Training Program
DX: U07.1 COVID-19 (principal)
CPT/HCPCS: 87635; 99282; C9803

== ENCOUNTER 2021-09-30 12:13 | Emergency (ER) | payer OTHER, SELFPAY ==
[2020-10-23 13:45] VITALS: BMI 34.4
[2021-09-30 12:37] VITALS: BP 149/72; PULSE 78; RESP 16; TEMP 36.4; O2SAT 99
--- NOTE | 2021-09-30 17:54 | ED.EXTPRO ---
HPI - Extremity Problem General Chief complaint: Extremity Problem,Nontraumatic Stated complaint: Left Arm Pain Time Seen by Provider: 09/30/21 13:40 Source: patient Mode of arrival: Ambulatory History of Present Illness HPI Narrative: 46-year-old male with history of left arm paresthesias and cubital tunnel syndrome presents to the emergency department today for worsening symptoms and numbness and tingling in his hand. Patient denies any new injury, he endorses he has a multitude of other musculoskeletal injuries which are being worked up any as an appointment at the end of this week about his spine and some of his symptoms. Patient denies any new weakness, he states that his left arm has been weak since he was diagnosed with nerve entrapment syndrome. He has tried to take Tylenol for this also ibuprofen without any relief. He states now that meds do not help him and he has not taken anything for this. Patient also endorses that he has not followed up with an orthopedic, he states that Dr. Walls ?signed off on him ?. Related Data Previous Rx's Medication Instructions Recorded prednisone 50 mg tablet 50 mg PO DAILY 5 Days #5 tab 09/30/21 Allergies Allergy/AdvReac Type Severity Reaction Status Date / Time latex Allergy Mild RASH Verified 09/30/21 12:41 Review of Systems Review of Systems Narrative: General: denies fever, chills Head/Neck: denies headache, neck pain Eyes: denies visual changes, eye pain Cardio: denies chest pain, palpitations Respiratory: denies shortness of breath, cough GI: denies abdominal pain, nausea, vomiting, or diarrhea : denies dysuria, hematuria MSK: denies joint pain, muscle weakness, endorses numbness and tingling in his left arm which is intermittent and waxes and wanes Skin: denies rash, itching Neuro: Denies falling, denies weakness in his legs, denies any weakness in his upper extremities except for the baseline weakness in his left arm. Patient History Medical History Asthma Dental infection Surgical History History of hand surgery Family History Grandmother Age: 97 Cerebrovascular accident (CVA), unspecified mechanism Mother Cancer Sleep apnea Hypertension Depression Father Diabetes mellitus Menieres disease Loud snoring Insomnia Alcohol abuse Substance abuse Family/Other Loud snoring Sleep apnea Hypertension Diabetes mellitus Heart disease Dementia Alcohol abuse Family/Other Loud snoring Hypertension Alcohol abuse Social History household members: children Smoking Status: Current every day smoker Smoking Status: Current every day smoker tobacco type: vaping alcohol intake frequency: holidays/special occasions only Substance Use Type: does not use Exam Narrative Exam Narrative: Independently reviewed vitals signs and nursing notes. General: Awake, alert, nontoxic, no cardiorespiratory distress Head/Neck: Atraumatic, neck full range of motion Eyes: EOMI, conjunctiva normal Nose: nares patent, no rhinorrhea Mouth/Throat: moist mucus membranes, posterior pharynx normal, no oral lesions Cardio: Regular rate and rhythm, no peripheral edema Respiratory: respirations unlabored without wheezing, stridor, or rales. No retractions. GI: Abdomen soft, nontender MSK: Moves all extremities, neurovascularly intact, per my exam, patient's strength is equal bilaterally upper and lower extremities. Patient has dull sensation to his left arm, he denies that this is any worse than it is usually. Skin: Normal capillary refill, no rash Neuro: Normal speech and cognition, normal gait Initial Vital Signs Initial Vital Signs: Vital Signs Temperature 97.5 F L 09/30/21 12:37 Pulse Rate 78 09/30/21 12:37 Respiratory Rate 16 09/30/21 12:37 Blood Pressure 149/72 H 09/30/21 12:37 Pulse Oximetry 99 09/30/21 12:37 Course Orders Ordered: Discontinued Medications Ketorolac Tromethamine (Ketorolac 30 Mg/Ml Vial) 15 mg IM NOW ONE Stop: 09/30/21 17:53 Last Admin: 09/30/21 18:29 Dose: 15 mg Documented by: Prednisone (Prednisone 20 Mg Tablet) 40 mg PO NOW ONE Stop: 09/30/21 17:53 Last Admin: 09/30/21 18:29 Dose: 40 mg Documented by: Vital Signs Vital signs: Vital Signs - 8 hr 09/30/21 12:37 Temperature 97.5 F L Pulse Rate 78 Respiratory Rate 16 Blood Pressure 149/72 H Pulse Oximetry 99 MDM - Extremity (Nontraumatic) MDM Narrative Medical decision making narrative: 46-year-old male with history of left cubital tunnel syndrome, multiple musculoskeletal issues which he is receiving care for who presents to the emergency department complaining of left arm paresthesias, and no improvement in his symptoms. Patient denies any new injury, extremity is warm, well perfused, pulses 2+, cap refill less than 2 seconds. Patient may have minor weakness in this arm but per my social services aide strength test, they are equal bilaterally. Recommended patient follow-up with orthopedics for this surgery. In the meantime, I gave patient Toradol IM injection and for a prednisone course to help with his radiculopathy symptoms. Patient is appropriate and amenable to discharge home. Vital signs are stable on repeat examination is unremarkable. Patient has been informed of results. Patient has been given strict return to ER precautions for any new or worsening symptoms. Patient understands to follow up closely with outpatient providers as instructed. Patient understands plan and agrees to discharge home. All questions and concerns answered at this time. Discharge Plan Departure Patient Disposition: Home Clinical Impression: Left arm pain, Arm paresthesia, left Cubital tunnel syndrome Qualifiers: Laterality: left Qualified Code(s): G56.22 - Lesion of ulnar nerve, left upper limb Instructions: Cubital Tunnel Syndrome Activity Restrictions/Additional Instructions: *You have been diagnosed with cubital tunnel syndrome/nerve entrapment in your left elbow affecting her left arm. Please follow-up with your doctors for your other problems as scheduled, please also mention this left elbow problem you have been having. Please take the steroids for the next 5 days. I have referred you to Orthopedics, please follow-up with them about your elbow if you need surgery for this they can help you with that. Please take naproxen for the next few days for your pain, remember to drink water in eat food with this. I hope that your pain gets better, please return to the emergency department for any new or worsening symptoms, please follow-up with orthopedics in your medical providers as scheduled. *What to do: *Please continue to take your regular medications as directed. [ x] New medication prescriptions sent to your pharmacy: [ ] [ ] New medication written as a paper prescription [ ] No new medications given *Please follow up with your primary care provider in 2-3 days, call for an appointment. Let them know you were seen in the Emergency Department and that we ask that you be seen in follow up. We will electronically transmit a record of today's note if your PCP is in our system *If you do not have a primary care provider please contact the [facility] Resource line at [phone]. They will ask some questions about your medical history and help get you set up with a doctor in the community. *Return to Emergency Department if you should have any new, worsening or concerning symptoms, such as [fever greater than 101F, chills, worsening pain, persistent vomiting or other bothersome symptoms] Prescriptions: New prednisone 50 mg tablet 50 mg PO DAILY 5 Days Qty: 5 0RF Referrals: Gonzales Walls MD [Primary Care Provider] - Pauline Spicer MD [Physician] - 5-7 days
[2021-09-30] MEDS: KETOROLAC 30 MG/ML VIAL 15 MG IM (18:29)
[2021-09-30] MEDS: predniSONE 20 MG TABLET 40 MG PO (18:29)
[2021-09-30 18:34] VITALS: BP 149/70; PULSE 78; RESP 16; O2SAT 99
== END 2021-09-30 18:34 | disposition home or self-care (01) ==
PROVIDERS: Emergency Provider Nurse Practitioner Critical Care Medicine; PCP Student in an Organized Health Care Education/Training Program
DX: G56.22 Lesion of ulnar nerve, left upper limb (principal)
CPT/HCPCS: 96372; 99283; J1885

== ENCOUNTER → 2021-10-07 15:34 | Outpatient (CLI) | payer OTHER, SELFPAY ==
[2020-10-23 13:45] VITALS: BMI 34.4
[2021-10-07 16:48] LABS: Add Manual Diff / Slide Review NO; Basophils Absolute Auto 0 /uL (0-100); Basophils Percent Auto 0.3 % (0-2); Eosinophils Absolute Auto 0 /uL (0-450); Eosinophils Percent Auto 0.1 % (2-4); Hematocrit 40.9 % (41-53); Hemoglobin 14.1 g/dL (13.5-17.5); Lymphocytes Absolute Auto 1200 /uL (1100-4500); Lymphocytes Percent Auto 10.8 % (25-40); Mean Corpuscular HGB Conc 34.5 % (30-36); Mean Corpuscular Hemoglobin 29.2 PG (26-34); Mean Corpuscular Volume 84.5 fL (80-100); Monocytes Absolute Auto 500 /uL (0-900); Monocytes Percent Auto 4.2 % (3-14); Neutrophils Absolute Auto 9400 /uL (1500-7000); Neutrophils Percent Auto 84.6 % (50-75); Platelet Count 254 X10^3/uL (150-400); Red Blood Cell Count 4.84 X10^6/uL (4.5-5.9); Red Cell Distribution Width 13.2 % (11.6-14.8); White Blood Cell Count 11.1 X10^3/uL (4.5-11.0)
[2021-10-07 17:32] LABS: Alanine Aminotransferase 27 IU/L (<50); Albumin 4.4 g/dL (3.5-5.0); Albumin Globulin Ratio 1.6 (1.0-2.8); Alkaline Phosphatase 73 U/L (38-126); Aspartate Aminotransferase 24 IU/L (17-59); Bilirubin Total 0.4 mg/dL (0.2-1.3); Bilirubin Unconjugated 0.3 mg/dL (0.0-1.1); Globulin 2.8 g/dL (1.7-4.1); HEMOLYSIS < 15 (0-50); Total Protein 7.2 g/dL (6.3-8.2)
== END ==
PROVIDERS: PCP Student in an Organized Health Care Education/Training Program; Referring Provider Psychiatry & Neurology Neurology; Visit Provider Psychiatry & Neurology Neurology
DX: R25.3 Fasciculation (principal)
CPT/HCPCS: 36415; 80076; 85025

== ENCOUNTER → 2022-05-13 15:39 | Outpatient (CLI) | payer OTHER, SELFPAY ==
[2022-04-30 17:54] VITALS: BMI 34.4
[2022-05-13 17:13] LABS: C-Reactive Protein Quant < 0.5 mg/dL (<1.0)
[2022-05-13 17:59] LABS: Erythrocyte Sedimentation Rate 18 MM/HR (0-15)
[2022-05-14 16:54] LABS: DNA (DS) Antibody <1 IU/mL (0-9)
[2022-05-16 14:37] LABS: ANA Screen, IFA Negative (.)
== END ==
PROVIDERS: PCP Student in an Organized Health Care Education/Training Program; Referring Provider Student in an Organized Health Care Education/Training Program; Visit Provider Student in an Organized Health Care Education/Training Program
DX: H31.9 Unspecified disorder of choroid (principal); H53.2 Diplopia; J45.40 Moderate persistent asthma, uncomplicated
CPT/HCPCS: 36415; 85651; 86038; 86140; 86225

== ENCOUNTER → 2023-09-17 14:19 | Outpatient (CLI) | payer OTHER, SELFPAY ==
[2022-04-30 17:54] VITALS: BMI 34.4
[2023-09-17 15:10] LABS: Hematocrit 42.6 % (41-53); Hemoglobin 14.5 g/dL (13.5-17.5); Mean Corpuscular HGB Conc 34.1 % (30-36); Mean Corpuscular Hemoglobin 29.1 PG (26-34); Mean Corpuscular Volume 85.5 fL (80-100); Platelet Count 227 X10^3/uL (150-400); Red Blood Cell Count 4.99 X10^6/uL (4.5-5.9); Red Cell Distribution Width 13.7 % (11.6-14.8); White Blood Cell Count 7.8 X10^3/uL (4.5-11.0)
[2023-09-17 15:47] LABS: Alanine Aminotransferase 54 IU/L (<50); Albumin 4.1 g/dL (3.5-5.0); Albumin Globulin Ratio 1.2 (1.0-2.8); Alkaline Phosphatase 70 U/L (38-126); Aspartate Aminotransferase 40 IU/L (17-59); BUN Creatinine Ratio 13.7 (6-22); Bilirubin Total 0.8 mg/dL (0.2-1.3); Blood Urea Nitrogen 13 mg/dL (9-20); Calcium 9.4 mg/dL (8.4-10.2); Carbon Dioxide 28 mmol/L (22-32); Chloride 103 mmol/L (98-107); Cholesterol 216 mg/dL (140-199); Estimated Glomerular Filt Rate > 60 mL/min (>60); Globulin 3.3 g/dL (1.7-4.1); Glucose 91 mg/dL (70-100); HDL Cholesterol 41 mg/dL (40-60); HEMOLYSIS < 15 (0-50); LDL Cholesterol Calculated 148 mg/dL (<100); Potassium 4.5 mmol/L (3.4-5.1); Sodium 138 mmol/L (137-145); Total Protein 7.4 g/dL (6.3-8.2); Triglycerides 133 mg/dL (35-150)
[2023-09-17 16:14] LABS: Prostate Specific Antigen Scrn 0.819 ng/mL (0.1-4.0)
== END ==
PROVIDERS: PCP Internal Medicine; Referring Provider Internal Medicine; Visit Provider Internal Medicine
DX: Z12.5 Encounter for screening for malignant neoplasm of prostate (principal); E78.2 Mixed hyperlipidemia; R19.7 Diarrhea, unspecified
CPT/HCPCS: 36415; 80053; 80061; 84443; 85027; G0103

== ENCOUNTER → 2024-07-15 13:31 | Outpatient (CLI) | payer OTHER, SELFPAY ==
[2022-04-30 17:54] VITALS: BMI 34.4
--- NOTE | 2024-07-15 13:33 | DI.RAD.S_ITS ---
PROCEDURE: XR KNEE RT 3V INDICATIONS: twisted right knee. Medial/posterior pain. TECHNIQUE: 3 views of the knee were acquired. COMPARISON: None. FINDINGS: Bones: No fractures or dislocations. No suspicious bony lesions. Soft tissues: No joint effusion. No suspicious soft tissue calcifications. IMPRESSION: No acute bony abnormality or significant effusion. Dictated by: Tu Montes M.D. on 07/15/2024 at 14:06 Approved by: Tu Montes M.D. on 07/15/2024 at 14:06
== END ==
PROVIDERS: PCP Internal Medicine; Referring Provider Physician Assistant Medical; Visit Provider Physician Assistant Medical
DX: S83.91XA Sprain of unspecified site of right knee, initial encounter (principal); X50.1XXA Overexertion from prolonged static or awkward postures, initial encounter
CPT/HCPCS: 73562

== ENCOUNTER 2024-10-03 10:00 | Emergency (ER) | payer OTHER, SELFPAY ==
[2022-04-30 17:54] VITALS: BMI 34.4
[2024-10-03 10:10] VITALS: BP 150/87; PULSE 69; RESP 18; TEMP 37.1; O2SAT 97; BMI 35.9
--- NOTE | 2024-10-03 11:08 | PC.NURSE ---
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 Pt states that he has been feeling pain ever since. Took naproxen this morning at about 0600 and did not feel any relief. States that he is able to work, but is feeling 8/10 pain in his love back area.
--- NOTE | 2024-10-03 11:15 | DI.RAD.S_ITS ---
PROCEDURE: XR LUMBAR SPINE 2-3V INDICATIONS: lowback pain TECHNIQUE: 3 views of the lumbar spine were acquired. COMPARISON: None. FINDINGS: Bones: 5 [id number] vertebrae are present. Slight rightward curvature. No vertebral body compression fractures. No suspicious bony lesions. Mild disc height loss at all levels. Facet arthrosis of L4 through S1. Soft tissues: Overlying bowel gas pattern is normal. No suspicious soft tissue calcifications. IMPRESSION: Mild, multilevel degenerative disc disease and lower lumbar facet arthrosis. No acute, displaced fracture or traumatic subluxation. Dictated by: Regis Olivares M.D. on 10/03/2024 at 11:48 Approved by: Regis Olivares M.D. on 10/03/2024 at 11:49
--- NOTE | 2024-10-03 11:17 | ED_ITS ---
HPI - Back Pain/Injury <Shell Greenfield PA-C - Last Filed: 10/03/24 12:18> General Chief Complaint: Back Pain/Injury Stated Complaint: Lower back pain. not feeling any better Time Seen by Provider: 10/03/24 11:05 Source: patient History of Present Illness HPI Narrative: 49-year-old male presents to the ED with 3 days of lower back pain. 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 Patient states that since then, he has been having midline lower back pain. No tingling, weakness. No saddle paresthesias. No urinary hesitancy. Pain radiates to the right lower buttock, left leg. Related Data Previous Rx's Medication Instructions Recorded fluticasone propionate 100 1 inh inhalation BID #60 ea 09/17/23 mcg/actuation blister powder for inhalation (Flovent Diskus) sildenafil (pulm.hypertension) 20 20 mg PO .COMPLEX #30 tabs 09/17/23 mg tablet albuterol sulfate 90 mcg/actuation 2 puff inhalation Q4-6H PRN 07/27/24 aerosol inhaler shortness of breath #6.7 grams cyclobenzaprine 10 mg tablet 10 mg PO TID PRN muscle spasm #15 10/03/24 tabs Allergies Allergy/AdvReac Type Severity Reaction Status Date / Time latex Allergy Mild RASH Verified 09/17/23 09:05 Review of Systems <Shell Greenfield PA-C - Last Filed: 10/03/24 12:18> Constitutional Constitutional: Denies chills, Denies fatigue, Denies fever(s), Denies frequent falls, Denies lethargy and Denies weakness Eyes Eyes: Denies change in vision, Denies eye discharge, Denies irritation and Denies loss of vision ENT Ears, Nose, Mouth, and Throat: Denies change in voice, Denies dizziness, Denies neck pain, Denies sore throat and Denies throat swelling Cardiovascular Cardiovascular: Denies chest pain, Denies irregular heart rhythm, Denies lightheadedness, Denies palpitations, Denies dyspnea, Denies dyspnea on exertion and Denies orthopnea Respiratory Respiratory: Denies cough, Denies dyspnea, Denies dyspnea on exertion and Denies wheezing Gastrointestinal Gastrointestinal: Denies abdominal pain, Denies change in bowel habits, Denies diarrhea, Denies nausea and Denies vomiting Musculoskeletal Musculoskeletal: Reports back pain, Denies neck pain and Denies numbness Integumentary/Breasts Skin/Breast: Denies pruritus, Denies erythema, Denies rash and Denies wounds Neurologic Neurologic: Denies behavioral changes, Denies confusion, Denies dizziness, Denies frequent falls, Denies loss of vision, Denies numbness and Denies weakness Psychiatric Psychiatric: Denies anxiety, Denies behavioral changes, Denies confusion, Denies depression, Denies homicidal ideation and Denies suicidal ideation Endocrine Endocrine: Denies fatigue, Denies flushing and Denies palpitations Hematologic/Lymphatic Hematologic/Lymphatic: Denies easy bruising Allergic/Immunologic Allergic/Immunologic: Denies urticaria, Denies throat swelling and Denies wheezing Patient History <Shell Greenfield PA-C - Last Filed: 10/03/24 12:18> Medical History (Updated 10/03/24 @ 12:17 by Shell Greenfield PA-C) Diarrhea Ulnar neuropathy at elbow of left upper extremity Mixed hyperlipidemia Asthma Dental infection Surgical History History of hand surgery Family History Grandmother Age: 100 Cerebrovascular accident (CVA), unspecified mechanism Mother Cancer Sleep apnea Hypertension Depression Father Diabetes mellitus Menieres disease Loud snoring Insomnia Alcohol abuse Substance abuse Family/Other Loud snoring Sleep apnea Hypertension Diabetes mellitus Heart disease Dementia Alcohol abuse Family/Other Loud snoring Hypertension Alcohol abuse Social History household members: children Smoking Status: Current every day smoker Smoking Status: Current every day smoker tobacco type: vaping alcohol intake frequency: holidays/special occasions only Exam <Shell Greenfield PA-C - Last Filed: 10/03/24 12:18> Narrative Exam Narrative: Const General:?cooperative, healthy appearing and comfortable [facility] Head:?normal to inspection Ears:?hearing grossly normal bilaterally Nose:?external nose normal Face and sinus:?normal facial exam and sinuses nontender Mouth:?oral mucosae normal Throat:?posterior oropharynx normal Eyes General:?appearance normal, both eyes and all related structures Neck Neck:?normal visual inspection and no lymphadenopathy noted Resp Effort & Inspection:?normal respiratory effort Auscultation:?clear to auscultation bilaterally Cardio Rate:?regular rate Rhythm:?regular rhythm Musculoskeletal There is some midline tenderness to palpation of the lower back. Patient is using a cane to walk. Strength and sensation is intact. Full range of motion. Neurovascularly intact. Neuro General:?patient alert, patient awake and patient oriented x3 Initial Vital Signs Initial Vital Signs: Vital Signs Temperature 98.7 F 10/03/24 10:10 Pulse Rate 69 10/03/24 10:10 Respiratory Rate 18 10/03/24 10:10 Blood Pressure 150/87 H 10/03/24 10:10 Pulse Oximetry 97 10/03/24 10:10 Oxygen Delivery Method Room Air 10/03/24 10:10 <Nereida Harper DO - Last Filed: 10/03/24 18:56> Initial Vital Signs Initial Vital Signs: Vital Signs Temperature 98.7 F 10/03/24 10:10 Pulse Rate 69 10/03/24 10:10 Respiratory Rate 18 10/03/24 10:10 Blood Pressure 150/87 H 10/03/24 10:10 Pulse Oximetry 97 10/03/24 10:10 Oxygen Delivery Method Room Air 10/03/24 10:10 Course <Shell Greenfield PA-C - Last Filed: 10/03/24 12:18> Orders Ordered: ED Orders 10/03/24 11:15 XR lumbar spine 2-3V Stat Discontinued Medications Cyclobenzaprine HCl (Cyclobenzaprine 10 Mg Tablet) 10 mg PO NOW ONE Stop: 10/03/24 11:16 Last Admin: 10/03/24 11:27 Dose: 10 mg Documented By: RANDOLPH Ketorolac Tromethamine (Ketorolac 30 Mg/Ml Vial) 30 mg IM NOW ONE Stop: 10/03/24 11:16 Last Admin: 10/03/24 11:27 Dose: 30 mg Documented By: RANDOLPH Vital Signs Vital signs: Vital Signs - 8 hr 10/03/24 12:31 Temperature 98.6 F Pulse Rate 74 Respiratory Rate 20 Blood Pressure 166/88 H Pulse Oximetry 100 Oxygen Delivery Method Room Air <Nereida Harper DO - Last Filed: 10/03/24 18:56> Orders Ordered: ED Orders 10/03/24 11:15 XR lumbar spine 2-3V Stat Discontinued Medications Cyclobenzaprine HCl (Cyclobenzaprine 10 Mg Tablet) 10 mg PO NOW ONE Stop: 10/03/24 11:16 Last Admin: 10/03/24 11:27 Dose: 10 mg Documented By: RANDOLPH Ketorolac Tromethamine (Ketorolac 30 Mg/Ml Vial) 30 mg IM NOW ONE Stop: 10/03/24 11:16 Last Admin: 10/03/24 11:27 Dose: 30 mg Documented By: RANDOLPH Vital Signs Vital signs: Vital Signs - 8 hr 10/03/24 12:31 Temperature 98.6 F Pulse Rate 74 Respiratory Rate 20 Blood Pressure 166/88 H Pulse Oximetry 100 Oxygen Delivery Method Room Air MDM - Back Pain/Injury <Shell Greenfield PA-C - Last Filed: 10/03/24 12:18> MDM Narrative Medical decision making narrative: 49-year-old male presents to the ED with 3 days of lower back pain. Concern for fracture/dislocation versus musculoskeletal sprain/strain versus herniated disc versus other. Will obtain x-ray, you have Toradol, Flexeril. Will reassess. X-ray without acute findings. Patient's symptoms most consistent with a musculoskeletal sprain/strain versus disc etiology. Patient prescribed Flexeril. Recommend taking ibuprofen and Flexeril. Recommend follow-up with PCP as soon as possible. ED return precautions discussed with patient. Patient verbalized understanding. Medical records reviewed: Yes Discharge Plan Departure Patient Disposition: Home Clinical Impression: Low back pain Qualifiers: Chronicity: acute Back pain laterality: midline Sciatica presence: with sciatica Sciatica laterality: bilateral sciatica Qualified Code(s): M54.42 - Lumbago with sciatica, left side Instructions: DI for Back Strain or Sprain Activity Restrictions/Additional Instructions: You were evaluated in the ED today for a back injury. Your x-ray did not show any fractures or dislocations. It appears that your symptoms are most consistent with a musculoskeletal sprain/strain versus disc injury. You may take 800 mg of ibuprofen every 8 hours with food for pain. You may also take the muscle relaxant that has been prescribed. The muscle relaxant might make you sleepy, therefore please avoid driving or operating machinery when taking it. Please follow-up with your PCP as soon as possible. Return to the ED if you have worsening symptoms, numbness, tingling, weakness, urinary difficulties. Prescriptions: New cyclobenzaprine 10 mg tablet 10 mg PO TID PRN (Reason: muscle spasm) Qty: 15 0RF No Action albuterol sulfate 90 mcg/actuation HFA aerosol inhaler 2 puff INHALATION Q4-6H PRN (Reason: shortness of breath) Qty: 6.7 3RF Flovent Diskus 100 mcg/actuation blister with device 1 inh inhalation BID Qty: 60 11RF sildenafil (pulm.hypertension) 20 mg tablet 20 mg PO .COMPLEX Qty: 30 2RF Rx Instructions: 20 mg orally; Sildenafil Citrate 20 Mg Tab Take one to five tablets by mouth 45 minutes before sexual activity. max of 5 tablets in 24 hours Referrals: Dariel Parada MD [Primary Care Provider] - Stand Alone Forms: Patient Portal/API/Survey ED Sign-out <Nereida Harper DO - Last Filed: 10/03/24 18:56> Cosign ED Attending Cosramyature Attestation: I was available for consultation.
[2024-10-03] MEDS: KETOROLAC 30 MG/ML VIAL IM (11:27)
[2024-10-03] MEDS: CYCLOBENZAPRINE 10 MG TABLET PO (11:27)
[2024-10-03 12:31] VITALS: BP 166/88; PULSE 74; RESP 20; TEMP 37; O2SAT 100
== END 2024-10-03 12:32 | disposition home or self-care (01) ==
PROVIDERS: Emergency Provider Student in an Organized Health Care Education/Training Program; PCP Internal Medicine
DX: M54.42 Lumbago with sciatica, left side (principal)
CPT/HCPCS: 72100; 96372; 99283; J1885

== ENCOUNTER → 2024-12-07 11:12 | Outpatient (CLI) | payer OTHER, SELFPAY ==
[2022-04-30 17:54] VITALS: BMI 34.4
[2024-12-07 12:45] LABS: Alanine Aminotransferase 42 IU/L (<50); Albumin 4.6 g/dL (3.5-5.0); Albumin Globulin Ratio 1.5 (1.0-2.8); Alkaline Phosphatase 87 U/L (38-126); Aspartate Aminotransferase 33 IU/L (17-59); BUN Creatinine Ratio 10.4 (6-22); Bilirubin Total 0.9 mg/dL (0.2-1.3); Blood Urea Nitrogen 12 mg/dL (9-20); Calcium 9.7 mg/dL (8.4-10.2); Carbon Dioxide 27 mmol/L (22-32); Chloride 103 mmol/L (98-107); Cholesterol 216 mg/dL (140-199); Estimated Glomerular Filt Rate > 60 mL/min (>60); Glucose 94 mg/dL (70-100); HDL Cholesterol 48 mg/dL (40-60); HEMOLYSIS < 15 (0-50); LDL Cholesterol Calculated 149 mg/dL (<100); Potassium 5.1 mmol/L (3.4-5.1); Sodium 139 mmol/L (137-145); Total Protein 7.6 g/dL (6.3-8.2); Triglycerides 95 mg/dL (35-150)
[2024-12-07 13:13] LABS: Prostate Specific Antigen Scrn 0.741 ng/mL (0.1-4.0)
[2024-12-08 15:09] LABS: Hep C Virus Ab w/Reflex Quant NEGATIVE s/c (NEGATIVE)
== END ==
PROVIDERS: PCP Internal Medicine; Referring Provider Internal Medicine; Visit Provider Internal Medicine
DX: E78.2 Mixed hyperlipidemia (principal); R94.5 Abnormal results of liver function studies; Z20.9 Contact with and (suspected) exposure to unspecified communicable disease; Z12.5 Encounter for screening for malignant neoplasm of prostate
CPT/HCPCS: 36415; 80053; 80061; 86803; G0103